=== PATIENT | male | born 1940 | race Caucasian/White ===

== ENCOUNTER 2020-09-01 08:08 | Outpatient (REF) | payer MEDICARE, SELFPAY ==
[2020-09-01 11:42] LABS: Hematocrit 48.9 % (42-52); Hemoglobin 15.4 g/dl (14.0-18.0); Mean Corpuscular HGB Conc 31.5 g/dl (31.0-36.0); Mean Corpuscular Hemoglobin 28.8 pg (27.0-33.0); Mean Corpuscular Volume 91.4 fL (80-98); Mean Platelet Volume 10.5 fL (9.4-12.4); Platelet Count 169 X10*3/uL (160-400); Red Blood Count 5.35 X10*6/uL (4.60-5.80); Red Cell Distribution Width 14.3 % (11.0-16.0); White Blood Count 9.3 X10*3/uL (4.8-10.8)
[2020-09-01 12:24] LABS: Alanine Aminotransferase 27 U/L (0-40); Albumin Level 4.5 g/dL (3.5-5.0); Alkaline Phosphatase 60 U/L (39-117); Anion Gap 12 (12-20); Aspartate Amino Transferase 19 U/L (5-37); Bilirubin Total 0.8 mg/dL (0.0-1.0); Blood Urea Nitrogen 16 mg/dL (9-16); Calcium 8.7 mg/dL (8.4-10.2); Carbon Dioxide 30 mmol/L (22-29); Chloride 102 mmol/L (96-108); Cholesterol 165 mg/dL; Estimated Glomerular Filt Rate > 60; Glucose Fasting 105 mg/dL (60-99); HDL Cholesterol 42 mg/dL; LDL Cholesterol Calculated 76 mg/dl; Potassium 4.1 mmol/l (3.3-5.1); Sodium 140 mmol/L (135-145); Total Protein 6.9 g/dL (6.5-8.0); Triglycerides 238 mg/dL
[2020-09-02 14:47] LABS: Mitochondrial Antibodies NEGATIVE (NEGATIVE)
[2020-09-06 12:17] LABS: Smooth Muscle Antibody <20 U (<20)
== END 2020-09-01 08:09 | disposition home or self-care (01) ==
LOC: HO.HMGCLDS 08:08
PROVIDERS: PCP Internal Medicine; Visit Provider Internal Medicine
DX: K76.0 Fatty (change of) liver, not elsewhere classified (principal); R78.2 Finding of cocaine in blood; I10 Essential (primary) hypertension; L29.9 Pruritus, unspecified; R55 Syncope and collapse
CPT/HCPCS: 36415; 80053; 80061; 85027; 86255; 86256

== ENCOUNTER 2020-09-19 13:33 | Outpatient (REF) | payer MEDICARE, SELFPAY ==
[2020-09-19 17:07] LABS: Alanine Aminotransferase 23 U/L (0-40); Albumin Level 4.7 g/dL (3.5-5.0); Alkaline Phosphatase 62 U/L (39-117); Anion Gap 14 (12-20); Aspartate Amino Transferase 20 U/L (5-37); Bilirubin Total 0.7 mg/dL (0.0-1.0); Blood Urea Nitrogen 20 mg/dL (9-16); Calcium 9.6 mg/dL (8.4-10.2); Carbon Dioxide 29 mmol/L (22-29); Chloride 99 mmol/L (96-108); Cholesterol 137 mg/dL; Estimated Glomerular Filt Rate > 60; Glucose Fasting 129 mg/dL (60-99); HDL Cholesterol 35 mg/dL; Sodium 138 mmol/L (135-145); Total Protein 7.2 g/dL (6.5-8.0); Triglycerides 452 mg/dL
[2020-09-19 17:29] LABS: Prostate Specific Antigen Scr 2.57 ng/mL (<0.05-4.0)
== END 2020-09-19 13:34 | disposition home or self-care (01) ==
LOC: HO.HMGCLDS 13:33
PROVIDERS: PCP Internal Medicine; Visit Provider Internal Medicine
DX: I48.91 Unspecified atrial fibrillation (principal); E78.5 Hyperlipidemia, unspecified; I10 Essential (primary) hypertension; I71.2 Thoracic aortic aneurysm, without rupture; N40.0 Benign prostatic hyperplasia without lower urinary tract symptoms
CPT/HCPCS: 80053; 80061; 84153

== ENCOUNTER 2020-10-14 10:41 | Outpatient (REF) | payer MEDICARE, SELFPAY ==
--- NOTE | 2020-10-14 10:51 | US_ITS ---
EXAMINATION: US VENOUS ULTRASOUND WITH DOPPLER LOWER EXTREMITY, LEFT CLINICAL INFORMATION: Localized edema. COMPARISON: None TECHNIQUE: Ultrasound of the deep veins is performed from the hip to the calf with compression sonography and color and pulse Doppler assessment. Spectral analysis with color-flow imaging is performed. FINDINGS: The common, proximal, mid and distal special femoral, profunda veins are widely patent. There is a chronic clot visualized within the popliteal vein. The calf veins including the peroneal and the posterior tibial veins are widely patent. No soft tissue edema seen. There is no Pineda's cyst. US/US venous duplex LE LT IMPRESSION: Chronic DVT popliteal vein. Rest of the left lower extremity veins are patent. The soft tissues are normal.
== END 2020-10-14 10:42 | disposition home or self-care (01) ==
LOC: HO.HMGCX 10:41
PROVIDERS: PCP Internal Medicine; Visit Provider Hospitalist
DX: R60.0 Localized edema (principal)
CPT/HCPCS: 93971

== ENCOUNTER 2020-12-28 13:53 | Outpatient (REF) | payer MEDICARE, SELFPAY ==
[2020-12-28 16:33] LABS: MANUAL DIFF FLAG NO
[2020-12-28 16:38] LABS: Basophils Absolute Auto 0.1 X10*3/uL (0.0-0.2); Basophils Percent Auto 0.6 % (0-2); Eosinophils Absolute Auto 0.2 X10*3/uL (0.0-0.4); Hematocrit 43.7 % (42-52); Hemoglobin 14.2 g/dl (14.0-18.0); Imm Gran Abs Auto 0.04 X10*3/uL (0.00-0.03); Imm Gran Pct Auto 0.5 % (0.0-0.4); Lymphocytes Absolute Auto 2.1 X10*3/uL (1.2-4.9); Lymphocytes Percent Auto 24.6 % (20-40); Mean Corpuscular HGB Conc 32.5 g/dl (31.0-36.0); Mean Corpuscular Hemoglobin 29.6 pg (27.0-33.0); Monocytes Absolute Auto 0.4 X10*3/uL (0.1-1.2); Monocytes Percent Auto 4.6 % (2-11); Neutrophils Absolute Auto 5.8 X10*3/uL (2.0-8.3); Neutrophils Percent Auto 67.7 % (45-73); Platelet Count 167 X10*3/uL (160-400); Red Cell Distribution Width 13.1 % (11.0-16.0); White Blood Count 8.5 X10*3/uL (4.8-10.8)
[2020-12-28 17:11] LABS: Alanine Aminotransferase 17 U/L (0-40); Albumin Level 4.4 g/dL (3.5-5.0); Alkaline Phosphatase 55 U/L (39-117); Anion Gap 13 (12-20); Aspartate Amino Transferase 17 U/L (5-37); Bilirubin Total 0.7 mg/dL (0.0-1.0); Blood Urea Nitrogen 19 mg/dL (9-16); Calcium 9.2 mg/dL (8.4-10.2); Carbon Dioxide 28 mmol/L (22-29); Chloride 102 mmol/L (96-108); Estimated Glomerular Filt Rate > 60; Glucose Random 106 mg/dL (60-115); Potassium 4.1 mmol/L (3.3-5.1); Sodium 139 mmol/L (135-145); Total Protein 6.6 g/dL (6.5-8.0)
[2020-12-28 17:19] LABS: B Type Natriuretic Peptide 25 pg/mL (<100)
== END 2020-12-28 13:54 | disposition home or self-care (01) ==
LOC: HO.HMGCLDS 13:53
PROVIDERS: PCP Internal Medicine; Visit Provider Nurse Practitioner Family
DX: R21 Rash and other nonspecific skin eruption (principal)
CPT/HCPCS: 36415; 80053; 83880; 85025

== ENCOUNTER → 2021-06-30 10:22 | Outpatient (BNVA) | payer MEDICARE, SELFPAY | PROVIDERS: PCP Nurse Practitioner Family; Visit Provider Internal Medicine Gastroenterology | DX: R11.15 Cyclical vomiting syndrome unrelated to migraine (principal) | CPT/HCPCS: 99202 ==

== ENCOUNTER 2021-07-10 10:25 | Outpatient (REF) | payer MEDICARE, SELFPAY ==
--- NOTE | ~2021-07-10 | FL_ITS ---
EXAMINATION: XR GI SERIES CLINICAL INFORMATION: Cyclical vomiting syndrome. COMPARISON: None TECHNIQUE: Upper GI was performed using thin and thick barium and effervescent granules. Exam is limited due to limited mobility. FINDINGS: There is slight mucosal irregularity at the esophagus suggestive of mild esophagitis. No esophageal hernia or reflux is seen. There may be mild increased fold thickening of the stomach. No mass, stricture or ulcer is seen. FLUOROSCOPY TIME: 2 minutes DOSE AREA PRODUCT: 25 Gycm2 32 saved fluoroscopic images. FL/FL upper GI series IMPRESSION: Limited exam due to limited patient mobility. Question mild esophagitis and gastritis.
== END 2021-07-10 10:26 | disposition home or self-care (01) ==
LOC: HO.XRAY 10:25
PROVIDERS: Visit Provider Internal Medicine Gastroenterology
DX: R11.15 Cyclical vomiting syndrome unrelated to migraine (principal)
CPT/HCPCS: 74240

== ENCOUNTER 2021-07-18 14:23 | Outpatient (REF) | payer MEDICARE, SELFPAY ==
--- NOTE | ~2021-07-18 | MR_ITS ---
EXAMINATION: MR BRAIN WITHOUT CONTRAST CLINICAL INFORMATION: Gait disorder. COMPARISON: None available. TECHNIQUE: Multiplanar, multisequence imaging of the brain was performed without intravenous contrast. FINDINGS: There is no acute infarction, hemorrhage, mass, or extra-axial fluid collection. There is a small focus of chronic lacunar infarction the right basal ganglia. Minimal nonspecific T2/FLAIR hyperintensity is seen in the cerebral white matter. The ventricles and sulci are commensurate with mild degree of diffuse brain parenchymal volume loss noted. There is no hydrocephalus. No brainstem, thalamic, or posterior fossa lesion is seen. The major arterial flow voids are preserved at the skull base. There are bilateral lens replacements. A subperiosteal lipoma is seen along the right frontal bone. There is a small mucosal retention cyst in left maxillary sinus and mild bilateral ethmoid mucosal thickening. MR/MR head/brain wo con IMPRESSION: No intracranial mass lesion, infarction, hemorrhage or evidence of hydrocephalus. Small chronic right basal ganglia lacunar infarct.
== END 2021-07-18 14:24 | disposition home or self-care (01) ==
LOC: HO.MRI 14:23
PROVIDERS: PCP Nurse Practitioner Family; Visit Provider Psychiatry & Neurology Neurology
DX: R26.9 Unspecified abnormalities of gait and mobility (principal)
CPT/HCPCS: 70551

== ENCOUNTER 2021-07-28 14:15 | Outpatient (REF) | payer MEDICARE, SELFPAY ==
--- NOTE | ~2021-07-28 | MR_ITS ---
MR CERVICAL SPINE WITHOUT CONTRAST CLINICAL INFORMATION: Gait and mobility abnormality. Rule out cord compression. COMPARISON: None available. TECHNIQUE: MRI of the cervical spine was obtained using routine sequences without contrast. FINDINGS: Cervical alignment is maintained. Vertebral body heights are preserved. Moderate to severe disc volume loss at C5-C6 and C6-C7. There is no bone marrow edema. There are no acute fractures. Craniocervical junction is unremarkable. Intracranially there is partially imaged global cerebral volume loss. Cervical arterial flow voids are maintained. There are no significant extraspinal soft tissue findings. C2-C3: Shallow central disc protrusion mildly indents the ventral thecal sac. Uncovertebral joint hypertrophy and hypertrophic facet arthropathy result in mild left-sided foraminal encroachment. C3-C4: Shallow central disc protrusion mildly narrows the central canal. Uncovertebral joint hypertrophy and hypertrophic facet arthropathy result in mild to moderate bilateral foraminal stenosis. C4-C5: Shallow central disc protrusion flattens the ventral cord, mildly narrowing the central canal. Advanced uncovertebral joint hypertrophy and hypertrophic facet arthropathy result in moderate to severe right-sided foraminal stenosis. C5-C6: Disc osteophyte flattens the ventral cord, resulting in mild central canal stenosis. Advanced uncovertebral joint hypertrophy and hypertrophic facet arthropathy result in severe bilateral foraminal stenosis. C6-C7: Disc osteophyte mildly narrows the central canal. Advanced uncovertebral joint hypertrophy and hypertrophic facet arthropathy result in severe left-sided foraminal stenosis. C7-T1: Posterior disc contour is normal. No central canal stenosis and no foraminal stenosis. MR/MR cervical spine wo con IMPRESSION: Multilevel cervical spondylosis with spondylitic changes resulting in mild to moderate bilateral C3-C4, moderate to severe right C4-C5, severe bilateral C5-C6, and severe left C6-C7 foraminal stenosis. Mild central canal stenosis at multiple cervical levels as discussed above. No severe central canal stenosis.
== END 2021-07-28 14:16 | disposition home or self-care (01) ==
LOC: HO.MRI 14:15
PROVIDERS: PCP Nurse Practitioner Family; Visit Provider Psychiatry & Neurology Neurology
DX: R26.9 Unspecified abnormalities of gait and mobility (principal)
CPT/HCPCS: 72141

== ENCOUNTER 2023-07-22 13:03 | Outpatient (AMB) | payer MEDICARE, SELFPAY ==
--- NOTE | 2023-07-22 13:13 | MHC.OFFVIS ---
Intake Vital Signs 07/22/23 13:24 Height 5 ft 6 in Weight 170 lb BMI 27.4 BP 130/70 Blood Pressure Location Rt brachial Position Sitting Respiration 16 Pulse 73 Pulse Source Pulse Oximeter Pulse Oximetry (%) 98 Oxygen Delivery Method Room Air Intake Visit Reasons: spinal stenosis Intake Note: patient comes in for initial visit was referred by pcp. Allergies No Known Allergies Allergy (Verified 07/22/23 13:19) HPI HPI Comments History of Present Illness Details Daniel is very pleasant 83 years old gentleman who presents in my office with complains on pain in the axial lumbar spine. He reported that this pain started in March on 2022. He was diagnosed with spondylolisthesis. He was under care of [facility] pain management where he was offered sacroiliac joint injections as well as bilateral facet joint vertebras medial branch block injection. He was found that at the [facility] does not accept his insurance so he brings his needs for care here in [facility]. He reports his pain is 5/10. He reports that he can sleep normally because of his pain but he cannot do activities of daily living he can take care of himself and he can not function normally. He needs walker for ambulation. Heat applications weather changes in movements aggravate his pain. He tried application of the cold and that alleviate his pain. He reports his pain in terms of tissue damage is dull, sore, hurting, aching, and heavy sensation. He also reports numbness sensation in the lumbar spine. He tried physical therapy for his pain with no results he was receiving massage therapy but also denied any results. He received MRI of the lumbar spine degrees out of which dictated below. The patient received that MRI 2 years ago in 2020. It was discovered with significant grade II spondylolisthesis and some spinal stenosis however without nerve root compressions. However since then he reported that he started to experience incontinence with urine. It is possible that his spondylolisthesis progressed and now causing neurogenic bladder. [facility] Medical History (Updated 07/22/23 @ 17:03 by Favio Morejon MD) BPH (benign prostatic hyperplasia) Fatty liver Osteoarthritis Disc herniation Chronic pruritus Ascending aortic aneurysm Atrial fibrillation Hyperlipidemia HTN (hypertension) Surgical History (Updated 06/30/21 @ 10:40 by JOEL Dumont) Hx of colonoscopy H/O hernia repair History of right shoulder replacement Social History Alcohol intake: never Review of Systems Const Denies chills and Denies fever(s) ENT Reports Normal hearing present Card Denies chest pain, Denies chest pain at rest, Denies chest pain with activity, Denies dyspnea and Denies dyspnea on exertion Resp Denies cough, Denies dyspnea and Denies dyspnea on exertion GI Reports no additional complaints Reports as per HPI and Reports urinary incontinence Musc Reports back pain, Reports arthralgias, Reports joint swelling, Reports limited range of motion and Reports numbness Neuro Reports Normal hearing present, Denies Abnormal speech present, Denies confusion, Reports numbness and Denies Sensory deficit (Neuro) Psych Reports no additional complaints and Denies confusion Physical Exam Vital Signs: Last Vital Signs Pulse 73 07/22/23 13:24 Resp 16 07/22/23 13:24 BP 130/70 07/22/23 13:24 Pulse Ox 98 07/22/23 13:24 Oxygen Delivery Method Room Air 07/22/23 13:24 BMI result Body Mass Index 27.4 Const General: no acute distress; No confusion Orientation/consciousness: patient oriented x3 and No confusion Eyes General: appearance normal, both eyes and all related structures Pupils: Equal, round and reactive pupils present EOM: EOMs intact bilaterally Neck Neck: Yes full ROM Chest Chest palpation & inspection: normal inspection of the chest Resp Effort & Inspection: normal respiratory effort, able to speak in complete sentences, normal respiratory pattern, no audible wheezes and no cough Cardio Jugular venous distension: no JVD GI Inspection: Yes normal to inspection Back/Spine/Pelvis Other: Minimal mobility of the lumbar spine. Flexing forward and flexing backwards do aggravates patient's pain. He reports that he uses walker for ambulation and it is easier for him to walk with the help of a walker. SLR is positive bilaterally. Bilateral Stinchfield test Gaenslen test Ken test and 14 finger test but not the pelvis destruction test are positive for the patient. Valsalva maneuver aggravates the patient's pain. Neuro General: patient oriented x3, gait normal and No confusion Cranial nerves: Yes CN's II-XII intact bilaterally, Yes Equal, round and reactive pupils present, Yes Normal hearing present and Yes Ability to bilaterally elevate shoulders present Speech: No Abnormal speech present Gait exam (Neuro): Normal gait present Motor exam (neuro): 5/5 motor strength present throughout Sensory Exam: No Sensory deficit (Neuro) Extrem General: No pedal edema Psych Speech and movement: Normal speech and movement present Affect: normal affect Attitude: cooperative Thought process: Normal thought process present Thought content: Normal thought content present Insight: Good insight present (Psych) Judgement: Good judgement present (Psych) Results Reviewed Results Reviewed: MRI lumbar spine 04/21/2021. Findings: Vertebral bodies are normal in height. There is grade 2 anterolisthesis of L5 on S1 with chronic appearing L5 pars interarticularis defect noted. Sagittal alignment is otherwise maintained. Multilevel degenerative endplate marrow signal changes and endplate osteophytes. There is diffuse disc desiccation and moderate to marked loss of intervertebral disc height along the several small Schmorl's nodes. The visualized distal spinal cord and conus medullaris are normal. The conus medullaris terminates at T12. The paraspinal and vertebral soft tissues are unremarkable. At T12-L1 there is a mild facet arthropathy but there is no spinal canal or neural foraminal stenosis. L1-L2 concentric disc osteophyte complex with small superimposed left paracentral disc protrusion component as well as ligamentum flavum thickening and facet arthropathy. There is mild narrowing the spinal canal and left subarticular recess although there is no impingement on the traversing left L2 nerve roots. There is moderate to severe left and mild right neural foraminal narrowing. Left neural foraminal narrowing mostly due to foraminal disc protrusion combine and. L2-L3: Diffuse disc bulge eccentric to were the left with ligamentum flavum thickening and facet arthropathy causing mild narrowing of the spinal canal. Moderate bilateral neural foraminal narrowing. L3-L4 diffuse disc bulge with ligamentum flavum thickening and facet arthropathy causing mild narrowing of the spinal canal. There is moderate bilateral neural foraminal narrowing. L4-5 there is concentric disc osteophyte complex and facet arthropathy. There is no significant narrowing of the spinal canal. There is moderate to severe right and [id number] left neural foraminal narrowing. L5-S1 there is anterolisthesis with uncovering of the intervertebral disc and there is a facet arthropathy. There is no significant narrowing of the spinal canal. There is severe bilateral neural foraminal narrowing with apparent compression of bilateral exiting L5 nerve roots. Extensive colonic diverticulosis is noted partially imaged. Assessment & Plan Assessment & Plan (1) Spondylolisthesis at L5-S1 level: Code(s): M43.17 - Spondylolisthesis, lumbosacral region (2) Disc degeneration, lumbar: Code(s): M51.36 - Other intervertebral disc degeneration, lumbar region (3) Sacroiliitis: Code(s): M46.1 - Sacroiliitis, not elsewhere classified (4) Sacroiliac joint dysfunction of both sides: Code(s): M53.3 - Sacrococcygeal disorders, not elsewhere classified (5) Facet arthropathy, lumbar: Code(s): M47.816 - Spondylosis without myelopathy or radiculopathy, lumbar region (6) Spondylosis, lumbar, with myelopathy: Code(s): M47.16 - Other spondylosis with myelopathy, lumbar region (7) Radiculopathy, lumbar region: Code(s): M54.16 - Radiculopathy, lumbar region (8) Chronic pain syndrome: Code(s): G89.4 - Chronic pain syndrome Plan Back in 2020 he was diagnosed with advanced grade 2 spondylolisthesis L5 on S1. Due to spondylolisthesis there are severe compression of the L5 nerve roots exiting at this level as well as mild central canal stenosis. Since then he reported his condition turned to worse and he developed urinary incontinence on top of the severe pain he reports in the axial lumbar spine. On physical examination he exhibits the signs of bilateral sacroiliitis as well as possible significant lumbar arthritis. He also exhibits signs of radiculopathy lumbar. He went for the consult with Dr. Griffin a neurosurgeon who denied him a surgery because of the older age but recommended watchful waiting because of the progression of the spondylolisthesis. Since then it was 2 years and it is possible that his spondylolisthesis progressed. I will schedule him for the MRI of the lumbar spine to evaluate possible progression of the spondylolisthesis. Because it looks that the patient is developing pelvic organ dysfunction I would like to expedite the MRI in schedule it as the urgent procedure. I will try to perform bilateral sacroiliac joint injections on this patient and see if this will alleviate his pain and to what extent. If sacroiliac joint injections will not be working for this patient I will schedule him for medial branch block injection L3-L4 does ramus L5 to isolate the area of the fractured pars defect and spondylolisthesis. If on the MRI severe spondylolisthesis and cauda equina compression will be noted hip probably have to pay a visit to a neurosurgeon again. Orders: Orders MR lumbar spine wo con Today G89.4 - Chronic pain syndrome, M43.17 - Spondylolisthesis, lumbosacral region, M46.1 - Sacroiliitis, not elsewhere classified, M47.16 - Other spondylosis with myelopathy, lumbar region, M47.816 - Spondylosis without myelopathy or radiculopathy, lumbar region, M51.36 - Other intervertebral disc degeneration, lumbar region, M53.3 - Sacrococcygeal disorders, not elsewhere classified, M54.16 - Radiculopathy, lumbar region Coding Level of Care Code New Pt Level 4 (42875) Diagnoses Spondylolisthesis at L5-S1 level M43.17 Disc degeneration, lumbar M51.36 Sacroiliitis M46.1 Sacroiliac joint dysfunction of both sides M53.3 Facet arthropathy, lumbar M47.816 Spondylosis, lumbar, with myelopathy M47.16 Radiculopathy, lumbar region M54.16 Chronic pain syndrome G89.4
[2023-07-22 13:24] VITALS: BP 130/70; PULSE 73; RESP 16; O2SAT 98; BMI 27.4
== END 2023-07-22 14:12 | disposition home or self-care (01) ==
PROVIDERS: PCP Nurse Practitioner Family; Visit Provider Anesthesiology
DX: G89.4 Chronic pain syndrome (principal); M46.1 Sacroiliitis, not elsewhere classified; M47.16 Other spondylosis with myelopathy, lumbar region; M47.26 Other spondylosis with radiculopathy, lumbar region; M51.36 Other intervertebral disc degeneration, lumbar region; M53.3 Sacrococcygeal disorders, not elsewhere classified; M43.17 Spondylolisthesis, lumbosacral region
CPT/HCPCS: 99204

== ENCOUNTER → 2023-07-22 13:03 | Outpatient (BNVA) | payer MEDICARE, SELFPAY | PROVIDERS: PCP Nurse Practitioner Family; Visit Provider Anesthesiology ==

== ENCOUNTER 2023-08-01 16:55 | Outpatient (REF) | payer MEDICARE, SELFPAY | END 2023-08-01 16:56 | disposition home or self-care (01) | LOC: HO.MRI 16:55 | PROVIDERS: PCP Internal Medicine; Visit Provider Anesthesiology | DX: M54.16 Radiculopathy, lumbar region (principal); M47.16 Other spondylosis with myelopathy, lumbar region; M47.816 Spondylosis without myelopathy or radiculopathy, lumbar region; M53.3 Sacrococcygeal disorders, not elsewhere classified; M46.1 Sacroiliitis, not elsewhere classified; M43.17 Spondylolisthesis, lumbosacral region; M51.36 Other intervertebral disc degeneration, lumbar region; G89.4 Chronic pain syndrome | CPT/HCPCS: 72148 ==

== ENCOUNTER 2023-08-13 07:25 | Outpatient (REF) | payer MEDICARE, SELFPAY ==
--- NOTE | ~2023-08-13 | FL_ITS ---
EXAMINATION: XR FLUOROSCOPY WITH IMAGES CLINICAL INFORMATION: Sacrococcygeal disorders, not elsewhere classified. COMPARISON: None available. TECHNIQUE: Fluoroscopy Supervised By: Dr. Favio Morejon. Fluoroscopy Time: 0.2 minutes. Cumulative Dose: 3.16 mGy. DAP: 0.0550 Gycm2. Images: 2. FINDINGS: Images demonstrate needle placement and contrast injection of the bilateral sacroiliac joints FL/FL guidance in treatment room IMPRESSION: Fluoroscopy guidance for pain management procedure
== END 2023-08-13 07:26 | disposition home or self-care (01) ==
LOC: CF 07:25
PROVIDERS: Visit Provider Anesthesiology
DX: M53.3 Sacrococcygeal disorders, not elsewhere classified (principal); M43.17 Spondylolisthesis, lumbosacral region; M51.36 Other intervertebral disc degeneration, lumbar region; M46.1 Sacroiliitis, not elsewhere classified; M47.16 Other spondylosis with myelopathy, lumbar region; G89.4 Chronic pain syndrome
CPT/HCPCS: 27096

== ENCOUNTER 2023-08-13 11:32 | Outpatient (AMB) | payer MEDICARE, SELFPAY ==
--- OUTSIDE RECORDS SUMMARY | 2023-08-13 11:34 | XMS_ITS | Continuity of Care Document ---
Author Name Unknown Organization [facility] Address [address] [place] [address] [address], [address] [place] [address]- Care Team Providers Care Manufacturing Operations Manager Name Role Phone Ino Hurtado DO Primary Care Physician Encounter [facility] Date(s): 05/26/21 - 06/25/21 [facility] [address] [place] [address] Drive, [address] [place], [place] [address] Allergies, Adverse Reactions, Alerts Substance Reaction Severity Status NKA Active Immunizations Given and Recorded Vaccine Date Status Refusal Reason influenza virus vaccine, inactivated 1 07/07/15 Re corded influenza virus vaccine, inactivated 2 09/25/13 Gi juancho influenza virus vaccine, inactivated 3 07/28/12 Gi juancho influenza virus vaccine, inactivated 4 09/02/11 Gi juancho Zostavax (oldterm) 03/14/11 Given FluLaval (oldterm) 08/02/10 Given FluLaval (oldterm) 5 07/07/09 Given tetanus-diphtheria toxoids (Td) 02/25/05 Given Pneumococcal Vaccine (oldterm) 11/28/03 Given 1Result Comment: [07/12/2015] GIVEN AT [facility] 2Admin Note: one month ago at [facility] in [place] 3Admin Note: [facility] 4Admin Note: [facility] 5Admin Note: [facility] [place] Medications Accu-Chek Dejah Plus Test Strips See Instructions, # 1 box, Refills 11, Tot. Refills 11, Maintenance, Please use as directed to testBS's BID for DM2 250.00, 06/08/15 14:26:00, Compound Start Date: 06/08/15 Status: Ordered Accu-Chek Dejah Plus Test Strips See Instructions, # 1 box, Refills 3, Tot. Refills 3, Maintenance, Please use as directed to test BS's TID for DM2 250.00, 07/05/15 22:06:17, 90 day supply please, Compound Start Date: 07/05/15 Status: Ordered lisinopril 10 mg oral tablet 1 tablet = 10 mg, By Mouth, Daily, # 90 tablet, 3 Refills, Maintenance, Tablet Start Date: 09/15/12 Stop Date: 09/10/13 Status: Ordered omega-3 polyunsaturated fatty acids 1000 mg oral capsule 2 capsule = 2,000 mg, By Mouth, 2 times a day, 0 Refills, Maintenance, 03/09/14 14:17:50 Start Date: 03/09/14 Status: Ordered Protonix 40 mg oral delayed release tablet 1 tablet = 40 mg, By Mouth, Daily, # 30 tablet, 0 Refills, Maintenance, 04/02/14 9:40:01, EC Tablet, 1 tablet By Mouth Daily Start Date: 04/02/14 Status: Ordered Soft Click Lancets See Instructions, # 1 box, Refills 11, Tot. Refills 11, Maintenance, Please use as directed to check BS BID for DM2 250.00, 06/08/15 14:25:57, soft click for Dejah plus accu check, Compound Start Date: 06/08/15 Status: Ordered Soft Click Lancets See Instructions, # 1 box, Refills 3, Tot. Refills 3, Maintenance, Please use as directed to test BS TID for DM2 250.00, 07/05/15 22:06:14, 90 day supply please, Compound Start Date: 07/05/15 Status: Ordered Problem List Condition Effective Dates Status Health Status Inform ant Adult BMI 30.0-30.9 kg/sq m(Confirmed) Active Adult BMI 30.0-30.9 kg/sq m(Confirmed) Active Aortic Aneurysm of Unspecifi ed Site without Mention of Rupture(Confirmed) 1, 2, 3 Active Arthritis of shoulder region , left, degenerative(Confirmed) 4 Active Benign hypertension(Confirmed) Active Chronic allergic rhinitis(Confirmed) Active Esophageal reflux (GERD)(Confirmed) 5 10/19/11 Active Gallstones(Confirmed) Active History of DVT (deep vein thrombosis)(Confirmed) Active Impaired Fasting Glucose(Con firmed) 6, 7 Active Low HDL (under 40)(Confirmed) Active Nephrolithiasis(Confirmed) Active Phlebitis, superficial(Confirmed) Active 1Stable 2minimal progression;monitoring CT 3mild see report ascending,arch,prox distal 4rt shoulder 5handout 6diabetic education done 7advised pre diabetic;increased risk diabetes Social History Social History Type Response Smoking Status Never smoker entered on: 09/25/13 Sex
--- OUTSIDE RECORDS SUMMARY | 2023-08-13 11:34 | XMS_ITS | Continuity of Care Document ---
Author Name Unknown Organization [facility] Address [address] [place] [address], [address] [place] [address]- Care Team Providers Care Documentum Consultant Name Role Phone Ino Hurtado DO Primary Care Physician Encounter [facility] Date(s): 07/11/21 - 08/10/21 [facility] [address] [place] [address], [address] [place], [place] [address] Attending Physician: Harman Frank Admitting Physician: AdmHarman martinez Referring Physician: AdmtrHarman Allergies, Adverse Reactions, Alerts Substance Reaction Severity [...] 11/28/03 Given 1Result Comment: [07/12/2015] GIVEN AT [facility] 2Admin Note: one month ago at [facility] in [place] 3Admin Note: [facility] 4Admin Note: [facility] 5Admin Note: [facility] [place] Medications Accu-Chek Dejah Plus Test Strips See [...] please, Compound Start Date: 07/05/15 Status: Ordered Eliquis 5 mg oral tablet 1 tablet = 5 mg, By Mouth, 2 times a day, 0 Refills, Maintenance, 07/11/21 10:33:00 EDT, Partial fill upon patient request if the prescription is for a schedule II opioid drug. Start Date: 07/11/21 Status: Ordered lisinopril 10 mg oral tablet 1 tablet = 10 mg, By Mouth, Daily, # 90 tablet, 3 Refills, Maintenance, Tablet Start Date: 09/15/12 Stop Date: 09/10/13 Status: Ordered Protonix 40 mg oral delayed [...] allergic rhinitis(Confirmed) Active Esophageal reflux (GERD)(Confirmed) 5 12/23/11 Active Gallstones(Confirmed) Active History of DVT (deep [...]
--- OUTSIDE RECORDS SUMMARY | 2023-08-13 11:34 | XMS_ITS | Continuity of Care Document ---
Author Name Unknown Organization [facility] Address [address] [place] [id number]- Care Team Providers Care Computational Linguist Name Role Phone Gilmer SANTOS MD, Miller Schneider Primary Care Physician [phone] [place] [facility] [place] 04/09/22 - 05/09/22 [facility] [address] [place] [id number]- Allergies, Adverse Reactions, Alerts No Known Allergies Immunizations Given and Recorded Vaccine Date Status [...] 11/28/03 Given 1Result Comment: [07/12/2015] GIVEN AT [facility] 2Admin Note: one month ago at [facility] [place] [facility] 4Admin Note: [facility] 5Admin Note: [facility] Medications Accu-Chek Dejah Plus Test Strips See [...] please, Compound Start Date: 07/05/15 Status: Ordered Atenolol By Mouth, Daily, 0 Refills, Maintenance, 01/16/22 13:42:00 EDT, Partial fill upon patient request if the prescription is for a schedule II opioid drug. Start Date: 01/16/22 Status: Ordered atorvastatin 10 mg oral tablet 1 tablet = 10 mg, By Mouth, Daily, # 30 tablet, 0 Refills, Maintenance, 11/08/21 12:53:00 EST, Partial fill upon patient request if the prescription is for a schedule II opioid drug. Start Date: 11/08/21 Status: Ordered Eliquis 5 mg oral tablet [...]
--- OUTSIDE RECORDS SUMMARY | 2023-08-13 11:34 | XMS_ITS | Continuity of Care Document ---
Author Name Unknown Organization [facility] Address [address], [address] Floor, [address] [place] [address]- Care Team Providers Care Light Rail Signal Technician Name Role Phone Gilmer SANTOS MD, Miller Schneider Primary Care Physician [place] [facility] [place]23 [place] 05/10/23 [facility] [address], 3rd Floor, [address] [place] [address] Allergies, Adverse Reactions, Alerts No Known Allergies [...] 11/28/03 Given 1Result Comment: [07/12/2015] GIVEN AT [facility] 2Admin Note: one month ago at [facility] in [place] 3Admin Note: [facility] 4Admin Note: [facility] 5Admin Note: [employer] [facility] [place] [...] Date: 07/05/15 Status: Ordered Problem List Condition Confirmation Course Effective Dates Status H ealth Status Informant Adult BMI 30.0-30.9 kg/sq m Confirmed Active Adult BMI 30.0-30.9 kg/sq m Confirmed Active Aortic Aneurysm of Unspecified Site without Mention of Rupture 1, 2, 3 Confirmed Active Arthritis of shoulder region, left, degenerative 4 Confirmed Active Benign hypertension Confirmed Active Sacroiliac joint dysfunction of both sides Confirmed Active Chronic allergic rhinitis Confirmed Active Esophageal reflux (GERD) 5 Confirmed 10/19/11 Active Gallstones Confirmed Active History of DVT (deep vein thrombosis) Confirmed Active Impaired Fasting Glucose 6, 7 Confirmed Active Low HDL (under 40) Confirmed Active Lumbar facet joint pain Confirmed Active Nephrolithiasis Confirmed Active Phlebitis, superficial Confirmed Active 1Stable 2minimal progression;monitoring CT 3mild see report ascending,arch,prox distal 4rt shoulder 5handout 6diabetic education done 7advised pre diabetic;increased risk diabetes Social History Social History Type Response Smoking Status Never smoker entered on: 09/25/13 Sex Patient Care team information Care Team Personnel Name: Gilmer SANTOS MD, Miller Schneider Position: Reference Physician Member Role: PCP Address: Address: [address] [place] [address]- Care Team Related Persons Name: MOIZ CHACKO Name: DOMO ISAACS Address: home [address] [place] [address]
--- OUTSIDE RECORDS SUMMARY | 2023-08-13 11:34 | XMS_ITS | Continuity of Care Document ---
Author Name Unknown Organization [facility] Address [address] [place] [address]- Care Team Providers Care Coding File Clerk Name Role Phone Gilmer SANTOS MD, Miller Schneider Primary Care Physician Encounter [id number] Date(s): 02/14/23 - 03/16/[address] [address] Attending Physician: Harman Frank Admitting Physician: AdmtrHarman Referring Physician: Admtr, Ar8 Allergies, Adverse Reactions, Alerts No Known Allergies [...] 11/28/03 Given 1Result Comment: [07/12/2015] GIVEN AT [facility] 2Admin Note: one month ago at [facility] in [place] 3Admin Note: [facility] 4Admin Note: [facility] 5Admin Note: [facility] [place] Medications Accu-Chek Dejah Plus Test Strips See [...] 4 Confirmed Active Benign hypertension Confirmed Active Chronic allergic rhinitis Confirmed Active Esophageal reflux (GERD) 5 Confirmed 10/19/11 Active Gallstones Confirmed Active History of DVT (deep vein thrombosis) Confirmed Active Impaired Fasting Glucose 6, 7 Confirmed Active 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
--- OUTSIDE RECORDS SUMMARY | 2023-08-13 11:34 | XMS_ITS | Continuity of Care Document ---
Author Name Unknown Organization [facility] Address [address] [place] [address]- Care Team Providers Care Personnel Monitor Name Role Phone Daniel Hurtado DO Primary Care Physician En[facility] Date(s): 01/19/22 - 02/18/22 [facility] [address] [place] [address] Allergies, Adverse Reactions, Alerts No Known Allergies [...] 11/28/03 Given 1Result Comment: [07/12/2015] GIVEN AT [facility] 2Admin Note: one month ago at [facility] in [place] 3Admin Note: [facility] 4Admin Note: [facility] 5Admin Note: [facility] [place] [...]
--- OUTSIDE RECORDS SUMMARY | 2023-08-13 11:34 | XMS_ITS | Continuity of Care Document ---
Author Name Unknown Organization [facility] Address [address] [place] [address]- Care Team Providers Care Water Mangle Tender Name Role Phone Gilmer SANTOS MD, Miller Schneider Primary Care Physician [phone] Encounter [facility] Date(s): 09/27/22 - 11/01/22 [facility] [address] [place] [address]- Attending Physician: Joanne Hannah MD Admitting Physician: Joanne Hannah MD Allergies, Adverse Reactions, Alerts No Known Allergies [...] Given 1Result Comment: [07/12/2015] GIVEN AT [facility] 2Admin Note: one month ago at [facility] in [place] 3Admin Note: [facility] 4Admin Note: [facility] 5Admin Note: [employer] [facility] [place] Medications Accu-Chek Dejah Plus Test Strips See [...] Name: Gilmer SANTOS MD, Miller Schneider Position: [facility] Ambulatory (view) Member Role: PCP Address: Address: [address] [place] [address]- Care Team Related Persons Name: MOIZ CHACKO Name: DOMO ISAACS Address: home [address] [place] [address]
--- OUTSIDE RECORDS SUMMARY | 2023-08-13 11:34 | XMS_ITS | Continuity of Care Document ---
Author Name Unknown Organization [facility] Address [address] [place] [address]- Care Team Providers Care Trim Setter Name Role Phone Miller Scherer III, MD Primary Care Physician [phone] [facility] Date(s): 05/30/22 - 06/29/22 [facility] [address] [place] [address]- Attending Physician: Harman Frank Admitting Physician: Harman Frank Referring Physician: AdmtrHarman Allergies, Adverse Reactions, Alerts No Known Allergies [...] 11/28/03 Given 1Result Comment: [07/12/2015] GIVEN AT [facility] 2Admin Note: one month ago at [facility] in [place] 3Admin Note: [facility] 4Admin Note: [facility] 5Admin Note: [facility] [place] Medications Accu-Chek Dejah Plus Test Strips See [...] Status Never smoker entered on: 09/25/13 Sex Care Team Personnel Name: Gilmer SANTOS MD, Miller Schneider Address: [address] [place] [id number]
--- OUTSIDE RECORDS SUMMARY | 2023-08-13 11:34 | XMS_ITS | Continuity of Care Document ---
Author Name Unknown Organization [facility] Address [address] [place] [address]- Care Team Providers Care Director Auto Name Role Phone Gilmer SANTOS MD, Miller Schneider Primary Care Physician [phone] Encounter [facility] Date(s): 04/05/22 - 05/05/22 [facility] [address] [place] [address]- Allergies, Adverse Reactions, Alerts No Known Allergies [...] 11/28/03 Given 1Result Comment: [07/12/2015] GIVEN AT [facility] 2Admin Note: one month ago at [facility] in [place] 3Admin Note: [facility] 4Admin Note: [facility] 5Admin Note: [facility] [place] Medications Accu-Chek Dejah Plus Test Strips See [...]
--- OUTSIDE RECORDS SUMMARY | 2023-08-13 11:34 | XMS_ITS | Continuity of Care Document ---
Author Name Unknown Organization [facility] Address [address] [place] [address] [address], [address] [place] [address]- Care Team Providers Care Speedboat Operator Name Role Phone Ino Hurtado DO Primary Care Physician [facility]counter [facility] Date(s): 07/11/21 - 08/10/21 [facility] [address] [place] [address] Drive, [address] [place], [place] [address] Allergies, Adverse Reactions, Alerts Substance [...] 11/28/03 Given 1Result Comment: [07/12/2015] GIVEN AT [facility] 2Admin Note: one month ago at [facility] in [place] 3Admin Note: [facility] 4Admin Note: [facility] 5Admin Note: [facility] [place] Medications Accu-Chek Dejah Plus Test Strips See [...]
--- OUTSIDE RECORDS SUMMARY | 2023-08-13 11:34 | XMS_ITS | Continuity of Care Document ---
Author Name Unknown Organization [facility] Address [address] [place] [address]- Care Team Providers Care Meter Mechanic Name Role Phone Gilmer SANTOS MD, Miller Schneider Primary Care Physician Encounter [facility] Date(s): 05/20/23 - 06/19/23 [facility] [address] [place] [address]- Attending Physician: Harman Frank Admitting Physician: AdmHarman martinez Referring Physician: Admtr, Kristian8 Allergies, Adverse Reactions, Alerts No Known Allergies [...] 11/28/03 Given 1Result Comment: [07/12/2015] GIVEN AT [facility] 2Admin Note: one month ago at [facility] in [place] 3Admin Note: [facility] 4Admin Note: [facility] 5Admin Note: [facility] [place] Medications Accu-Chek Dejah Plus Test Strips See [...] Status Never smoker entered on: 09/25/13 Sex Radiology * Event Display: MRI Spine, Non- BH Authored Date: Patient Care team information Care Team Personnel Name: Gilmer SANTOS MD, Miller Schneider Position: Reference Physician Member Role: PCP Address: Address: [address] [place] [address]- Care Team Related Persons Name: MOIZ CHACKO Name: DOMO ISAACS Address: home [address] [place] [address]
--- OUTSIDE RECORDS SUMMARY | 2023-08-13 11:35 | XMS_ITS | Continuity of Care Document ---
Author Name Unknown Organization [facility] Address [address] [place] [address]- Care Team Providers Care Examining Officer Name Role Phone Daniel Hurtado DO Primary Care Physician [place] [facility]/21 - 12/07/[address] [address] Attending Physician: Daniel Hurtado DO Admitting Physician: Daniel Hurtado DO Allergies, Adverse Reactions, Alerts No Known Allergies [...] 11/28/03 Given 1Result Comment: [07/12/2015] GIVEN AT [facility] 2Admin Note: one month ago at [facility] in [place] 3Admin Note: [facility] 4Admin Note: [facility] 5Admin Note: [facility] [place] Medications Accu-Chek Dejah Plus Test Strips See [...] please, Compound Start Date: 07/05/15 Status: Ordered atorvastatin 10 mg oral tablet [...]
--- OUTSIDE RECORDS SUMMARY | 2023-08-13 11:35 | XMS_ITS | Continuity of Care Document ---
Author Name Unknown Organization [facility] Address [address] [place] [address]- Care Team Providers Care Global Marketing Coordinator Name Role Phone Gilmer SANTOS MD, Miller Schneider Primary Care Physician Encounter [facility] Date(s): 09/27/22 - 10/27/22 [facility] [address] [place] [address]- Allergies, Adverse Reactions, Alerts No Known Allergies [...] [place] 2Admin Note: one month ago at [facility] in [place] 3Admin Note: [facility] 4Admin Note: [facility] 5Admin Note: [facility] [place] Medications Accu-Chek Dejah Plus Test Strips See [...] Name: Gilmer SANTOS MD, Miller Schneider Position: [facility] Ambulatory (view) Member Role: PCP Address: Address: [address] [place] [address]- Care Team Related Persons Name: MOIZ CHACKO Name: DOMO ISAACS Address: home [address] [place] [address]
--- OUTSIDE RECORDS SUMMARY | 2023-08-13 11:35 | XMS_ITS | Continuity of Care Document ---
Author Name Unknown Organization [facility] Address [address] [place] [address]- Care Team Providers Care Home Health Care Respiratory Therapist Name Role Phone Ino Hurtado DO Primary Care Physician [place] [facility] [place](s[place] 01/18/22 - 02/17/[address] [address] Attending Physician: Harman Frank Admitting Physician: AdmHarman [...] Given 1Result Comment: [07/12/2015] GIVEN AT [facility] 2Admin Note: one month ago at [facility] in [place] 3Admin Note: [facility] 4Admin Note: [facility] 5Admin Note: [facility] [place] Medications [...]
--- OUTSIDE RECORDS SUMMARY | 2023-08-13 11:35 | XMS_ITS | Continuity of Care Document ---
Author Name Unknown Organization [facility] Address [address] [place] [address]- Care Team Providers Care Head Tennis Coach Name Role Phone Gilmer SANTOS MD, Miller Schneider Primary Care Physician [place] [facility] [place] 04/18/23 - 05/18/23 [facility] [address] [place] [address]- Allergies, Adverse Reactions, Alerts No Known Allergies [...] HOSPITAL 2Admin Note: one month ago at [facility] in [place] 3Admin Note: [facility] 4Admin Note: [facility] 5Admin Note: [facility] Medications Accu-Chek Dejah Plus Test Strips See [...] Physician Member Role: PCP Address: Address: [address] [place] [address]- Care Team Related Persons Name: MOIZ CHACKO Name: DOMO ISAACS Address: home [address] [place] [address]
--- OUTSIDE RECORDS SUMMARY | 2023-08-13 11:35 | XMS_ITS | Continuity of Care Document ---
Author Name Unknown Organization [facility] Address [address] [place] [address] [address], [address] [place] [address]- Care Team Providers Care Environmental Science Professor Name Role Phone Ino Hurtado DO Primary Care Physician [facility] Date(s): 09/18/21 - 10/18/21 [facility] [address] [place] [address] Drive, [address] [place], [place] [address] Allergies, Adverse Reactions, Alerts Substance Reaction Severity [...] 11/28/03 Given 1Result Comment: [07/12/2015] GIVEN AT [facility] 2Admin Note: one month ago at [facility] in [place] 3Admin Note: [facility] 4Admin Note: [facility] 5Admin Note: [facility] [place] Medications [...]
--- OUTSIDE RECORDS SUMMARY | 2023-08-13 11:35 | XMS_ITS | Continuity of Care Document ---
Author Name Unknown Organization [facility] Address [address] [place] [address]- Care Team Providers Care Forepart Laster Name Role Phone Ino Hurtado DO Primary Care Physician En[facility] Date(s): 10/10/21 - 12/02/21 [facility] [address] [place] [address] Attending Physician: Joanne Hannah MD Admitting Physician: Joanne Hannah MD Referring Physician: Ino Hurtado DO Allergies, Adverse Reactions, Alerts No [...] 11/28/03 Given 1Result Comment: [07/12/2015] GIVEN AT [facility] 2Admin Note: one month ago at [facility] [place] 3Admin Note: [facility] 4Admin Note: [facility] 5Admin Note: [employer] [facility] [place] [...]
--- OUTSIDE RECORDS SUMMARY | 2023-08-13 11:35 | XMS_ITS | Continuity of Care Document ---
Author Name Unknown Organization [facility] Address [address] [place] [address]- Care Team Providers Care Cap And Hat Production Supervisor Name Role Phone Gilmer SANTOS MD, Miller Schneider Primary Care Physician Encounter [facility] Date(s): 04/26/23 - 06/19/23 [facility] [address] [place] [address]- Attending Physician: Tee Flores MD Admitting Physician: Tee Flores MD Allergies, Adverse Reactions, Alerts No Known [...] 11/28/03 Given 1Result Comment: [07/12/2015] GIVEN AT [facility] 2Admin Note: one month ago at [facility] in [place] 3Admin Note: [facility] 4Admin Note: [facility] 5Admin Note: [facility] [place] [...] Care Team Personnel Name: Gilmer SANTOS MD, Millre Schneider Position: Reference Physician Member Role: PCP Address: Address: [address] [place] [address]- Care Team Related Persons Name: MOIZ CHACKO Name: DOMO ISAACS Address: home [address] [place] [address]
--- OUTSIDE RECORDS SUMMARY | 2023-08-13 11:35 | XMS_ITS | Continuity of Care Document ---
Author Name Unknown Organization [facility] Address [address] [place] [address]- Care Team Providers Care Safety Glass Installer Name Role Phone Gilmer SANTOS MD, Miller Schneider Primary Care Physician [phone] Encounter [facility] Date(s): 01/17/23 - 04/16/[address] [address] Encounter Diagnosis Unspecified abnormalities of gait and mobility(Final) - Discharge Disposition: A-D/C Home Attending Physician: Kulwinder Beal DO Admitting Physician: Kulwinder Beal DO Referring Physician: Kulwinder Beal DO Allergies, Adverse Reactions, Alerts No Known [...] 11/28/03 Given 1Result Comment: [07/12/2015] GIVEN AT [facility] 2Admin Note: one month ago at [facility] in [place] 3Admin Note: [facility] 4Admin Note: [facility] 5Admin Note: [facility] [place] [...] Reference Physician Member Role: PCP Address: Address: [address] [place] [address]- Care Team Related Persons Name: MOIZ CHACKO Name: DOMO ISAACS Address: home [address] [place] [address]
--- OUTSIDE RECORDS SUMMARY | 2023-08-13 11:36 | XMS_ITS | Continuity of Care Document ---
Author Name Unknown Organization [facility] Address [address] [place] [address] [address], [address] [place] [address]- Care Team Providers Care Nail Making Machine Tender Name Role Phone Ino Hurtado DO Primary Care Physician [facility]counter [facility] Date(s): 05/22/21 - 06/21/21 [facility] [address] [place] [address] Drive, [address] [place], [place] [address] Allergies, Adverse Reactions, Alerts Substance Reaction Severity [...] 11/28/03 Given 1Result Comment: [07/12/2015] GIVEN AT [facility] 2Admin Note: one month ago at [facility] in [place] 3Admin Note: [facility] 4Admin Note: [facility] 5Admin Note: [facility] [place] Medications Accu-Chek Dejah Plus Test Strips [...]
--- OUTSIDE RECORDS SUMMARY | 2023-08-13 11:36 | XMS_ITS | Continuity of Care Document ---
Author Name Unknown Organization [facility] Address [address] [place] [address] [address], [address] [place] [address]- Care Team Providers Care Focused Factory Manager Name Role Phone Ino Hurtado DO Primary Care Physician [place] [facility] [place] [place] 07/11/21 - 07/18/21 [facility] [address] [place] [address] Drive, [address] [place], [place] [address] Attending Physician: Casimiro Griffin MD Referring Physician: Jose R Wharton DO Allergies, Adverse Reactions, Alerts Substance Reaction Severity [...] 11/28/03 Given 1Result Comment: [07/12/2015] GIVEN AT [facility] 2Admin Note: one month ago at [facility] in [place] 3Admin Note: [facility] 4Admin Note: [facility] 5Admin Note: [facility] [place] Medications [...] education done 7advised pre diabetic;increased risk diabetes Vital Signs Most recent to oldest [Reference Range]: 1 Height 170.00 cm (07/11/21 10:28 AM) Weight 78.5 kg (07/11/21 10:28 AM) Body Mass Index [18.5-24.99] 27.16 *H* (07/11/21 10:28 AM) Social History Social History Type Response Smoking Status Never smoker entered on: 09/25/13 Sex
--- OUTSIDE RECORDS SUMMARY | 2023-08-13 11:36 | XMS_ITS | Continuity of Care Document ---
Author Name Unknown Organization [facility] Address [address] [place] [address]- Care Team Providers Care Gateman Name Role Phone Daniel Hurtado DO Primary Care Physician Encounter [facility] [id number] Date(s): 10/31/21 - 11/23/[address] [address] Discharge Disposition: A-D/C Home Attending Physician: Daniel Hurtado DO Admitting Physician: Daniel Hurtado DO Referring Physician: Daniel Hurtado DO Allergies, Adverse Reactions, [...] 11/28/03 Given 1Result Comment: [07/12/2015] GIVEN AT [facility] 2Admin Note: one month ago at [facility] in [place] 3Admin Note: [facility] 4Admin Note: [facility] 5Admin Note: [facility] [place] Medications [...]
--- OUTSIDE RECORDS SUMMARY | 2023-08-13 11:36 | XMS_ITS | Continuity of Care Document ---
Author Name Unknown Organization [facility] Address [address] [facility], [address] Floor, [address] [place] [address]- Care Team Providers Care Supervisor Parachute Manufacturing Name Role Phone Gilmer SANTOS MD, Miller Schneider Primary Care Physician Encounter [facility] Date(s): 12/31/22 - 01/30/23 [facility] [address] [facility], 3rd Floor, [address] [place] [address] Allergies, Adverse Reactions, Alerts No Known Allergies [...] CENTER 2Admin Note: one month ago at [facility] in [place] 3Admin Note: [facility] 4Admin Note: [facility] 5Admin Note: [facility] [place] Medications Accu-Chek Dejah Plus Test Strips See [...] Name: Gilmer SANTOS MD, Miller Schneider Position: S Ambulatory (view) Member Role: PCP Address: Address: [address] [place] [address]- Care Team Related Persons Name: MOIZ CHACKO Name: DOMO ISAACS Address: home [address] [place] [address]
--- OUTSIDE RECORDS SUMMARY | 2023-08-13 11:36 | XMS_ITS | Continuity of Care Document ---
Author Name Unknown Organization [facility] Address [address] [place] [address]- Care Team Providers Care Rustic Fence Builder Name Role Phone Gilmer SANTOS MD, Miller Schneider Primary Care Physician En[facility] Date(s): 04/10/22 - 05/10/22 [facility] [address] [place] [address]- Allergies, Adverse Reactions, Alerts No Known Allergies [...] 11/28/03 Given 1Result Comment: [07/12/2015] GIVEN AT [facility] 2Admin Note: one month ago at [facility] in [place] 3Admin Note: [facility] 4Admin Note: [facility] 5Admin Note: [facility] Medications Accu-Chek Dejah Plus Test Strips See [...]
--- OUTSIDE RECORDS SUMMARY | 2023-08-13 11:36 | XMS_ITS | Continuity of Care Document ---
Author Name Unknown Organization [facility] Address [address] [place] [id number]- Care Team Providers Care Time Study Engineer Name Role Phone Gilmer SANTOS MD, Miller Schneider Primary Care Physician Encounter [place] Date(s): 10/02/22 - 11/01/22 [facility] [address] [place] [id number]- Attending Physician: Harman Frank Admitting Physician: Harman Frank Referring Physician: Admtr, [id number] Allergies, Adverse Reactions, [...] 11/28/03 Given 1Result Comment: [07/12/2015] GIVEN AT [facility] 2Admin Note: one month ago at [facility] in [place] 3Admin Note: [facility] 5Admin Note: [facility] Medications [...] Status Never smoker entered on: 09/25/13 Sex Note * Event Display: MRI Spine, Non- BH Authored Date: Patient Care team information Care Team Personnel Name: Gilmer SANTOS MD, Miller Schneider Position: [facility] ([facility]) Member Role: PCP Address: Address: [address] [place] [id number]- Care Team Related Persons Name: MOIZ CHACKO Name: DOMO ISAACS Address: home [address] [place] [address]
--- NOTE | 2023-08-13 11:49 | MHC.OFFVIS ---
Intake Vital Signs 08/13/23 12:13 08/13/23 12:13 Height 5 ft 6 in 5 ft 6 in Weight 170 lb 170 lb BMI 27.4 27.4 BP 106/70 112/80 Blood Pressure Location Rt brachial Lt brachial Position Sitting Supine Respiration 16 16 Pulse 67 69 Pulse Source Pulse Oximeter Pulse Oximeter Pulse Oximetry (%) 97 97 Oxygen Delivery Method Room Air Room Air Comment pre-op post-op Intake Visit Reasons: BILAT DX SIJ INJ/LOCAL Allergies No Known Allergies Allergy (Verified 08/13/23 12:14) PFSH Medical History (Updated 07/22/23 @ 17:03 by Favio Morejon MD) BPH (benign prostatic hyperplasia) Fatty liver Osteoarthritis Disc herniation Chronic pruritus Ascending aortic aneurysm Atrial fibrillation Hyperlipidemia HTN (hypertension) Surgical History (Updated 06/30/21 @ 10:40 by JOEL Dumont) Hx of colonoscopy H/O hernia repair History of right shoulder replacement Social History Alcohol intake: never Physical Exam Vital Signs: Last Vital Signs Pulse 69 08/13/23 12:13 Resp 16 08/13/23 12:13 BP 112/80 08/13/23 12:13 Pulse Ox 97 08/13/23 12:13 Oxygen Delivery Method Room Air 08/13/23 12:13 BMI result Body Mass Index 27.4 Assessment & Plan Assessment & Plan (1) Spondylolisthesis at L5-S1 level: Code(s): M43.17 - Spondylolisthesis, lumbosacral region (2) Disc degeneration, lumbar: Code(s): M51.36 - Other intervertebral disc degeneration, lumbar region (3) Sacroiliitis: Code(s): M46.1 - Sacroiliitis, not elsewhere classified (4) Sacroiliac joint dysfunction of both sides: Code(s): M53.3 - Sacrococcygeal disorders, not elsewhere classified (5) Facet arthropathy, lumbar: Code(s): M47.816 - Spondylosis without myelopathy or radiculopathy, lumbar region (6) Spondylosis, lumbar, with myelopathy: Code(s): M47.16 - Other spondylosis with myelopathy, lumbar region (7) Radiculopathy, lumbar region: Code(s): M54.16 - Radiculopathy, lumbar region (8) Chronic pain syndrome: Code(s): G89.4 - Chronic pain syndrome Plan: Bilateral diagnostic sacroiliac joint injection. Informed consent was explained thoroughly to the patient. All questions about benefits and risks for the procedure were answered. Patient came to the operating room and was positioned prone on the operating table with the pillow under the pelvis. Time out was performed delineating name and of the patient, allergies and the nature of the procedure. The lower back and buttocks of the patient were prepped with ChloraPrep prepped and draped with sterile utility towels. C-arm was brought over the operating field and sq picture of patient's pelvis was demonstrated on the screen. For the right joint tilting C-arm contralateral to the site of the joint the most posterior portion of the joints was superimposed with anterior silhouette of the joint. Skin was injected in the projection of the joint slightly medial to the location of the joint with 25 gauge 1/2 inch needle using local lidocaine 2% .After that 22 gauge 3 and 1/2 inch needle was driven to the right joint in tunnel vision fashion. When needle entered the joint capsule injection of the contrast was performed demonstrating intra-articular and minimally periarticular spread of the contrast. After that 4 cc. of ropivacaine 0.5% was injected into the joint. Upon completion of the injections the needle was removed and the procedure was repeated on the left in the mirroring fashion. Sterile dressing was applied. Upon completion of the injection patient was taken outside of the operating room to the recovery room where recovered uneventfully. Plan Back in 2020 he was diagnosed with advanced grade 2 spondylolisthesis L5 on S1. Due to spondylolisthesis there are severe compression of the L5 nerve roots exiting at this level as well as mild central canal stenosis. Since then he reported his condition turned to worse and he developed urinary incontinence on top of the severe pain he reports in the axial lumbar spine. On physical examination he exhibits the signs of bilateral sacroiliitis as well as possible significant lumbar arthritis. He also exhibits signs of radiculopathy lumbar. He went for the consult with Dr. Griffin a neurosurgeon who denied him a surgery because of the older age but recommended watchful waiting because of the progression of the spondylolisthesis. Since then it was 2 years and it is possible that his spondylolisthesis progressed. I will schedule him for the MRI of the lumbar spine to evaluate possible progression of the spondylolisthesis. Because it looks that the patient is developing pelvic organ dysfunction I would like to expedite the MRI in schedule it as the urgent procedure.NO significant central canal stenosis on the MRI I will try to perform bilateral sacroiliac joint injections on this patient and see if this will alleviate his pain and to what extent. If sacroiliac joint injections will not be working for this patient I will schedule him for medial branch block injection L3-L4 does ramus L5 to isolate the area of the fractured pars defect and spondylolisthesis. If on the MRI severe spondylolisthesis and cauda equina compression will be noted hip probably have to pay a visit to a neurosurgeon again. Orders: Orders FL guidance in treatment room Today M53.3 - Sacrococcygeal disorders, not elsewhere classified Coding Level of Care Code Procedure Only Diagnoses Spondylolisthesis at L5-S1 level M43.17 Disc degeneration, lumbar M51.36 Sacroiliitis M46.1 Sacroiliac joint dysfunction of both sides M53.3 Facet arthropathy, lumbar M47.816 Spondylosis, lumbar, with myelopathy M47.16 Radiculopathy, lumbar region M54.16 Chronic pain syndrome G89.4
[2023-08-13 12:13] VITALS: BP 106/70; BP 112/80; PULSE 67; PULSE 69; RESP 16; O2SAT 97; BMI 27.4
== END 2023-08-13 12:24 | disposition home or self-care (01) ==
LOC: HO.PMCPRC 11:33
PROVIDERS: PCP Internal Medicine; Visit Provider Anesthesiology
DX: M53.3 Sacrococcygeal disorders, not elsewhere classified (principal); M46.1 Sacroiliitis, not elsewhere classified; M47.16 Other spondylosis with myelopathy, lumbar region; M47.26 Other spondylosis with radiculopathy, lumbar region; G89.4 Chronic pain syndrome; M43.17 Spondylolisthesis, lumbosacral region; M51.36 Other intervertebral disc degeneration, lumbar region
CPT/HCPCS: 27096

== ENCOUNTER 2023-08-19 10:51 | Outpatient (AMB) | payer MEDICARE, SELFPAY ==
--- NOTE | 2023-08-19 11:07 | A.OFFVIS_ITS ---
Intake Vital Signs 08/19/23 11:12 Height 5 ft 6 in Weight 170 lb BMI 27.4 BP 144/68 H Blood Pressure Location Lt brachial Position Sitting Respiration 16 Pulse 70 Pulse Source Pulse Oximeter Pulse Oximetry (%) 98 Oxygen Delivery Method Room Air Intake Visit Reasons: BILAT DX SIJ INJ 08/13/23 Allergies No Known Allergies Allergy (Verified 08/19/23 11:13) HPI HPI Comments History of Present Illness Details Daniel is back in my office after diagnostic bilateral sacroiliac joint injection which was performed on 08/13/2023. The emphasis of his complaints today is on the stiffness of the right lower extremity, weakness of the right lower extremity, inability to put weight on the right lower extremity, he says: ?It looks like my brain is not connected to my right leg. ?. He places the p ain itself as the less significant complaint. He reports that sacroiliac joint injection relieved his pain from 5 out of 10 to 3/10 for 6 hours after the procedure. That the response to longevity of the local anesthetic working however the nature of his complains make me think about spinal canal and foraminal stenosis which actually major aggravation of this patient's activities of daily living and mobility. We agreed that I will refer him to a neurosurgical consult. Six months ago he was examined by Dr. Griffin, the surgery was not offered to him. Prior: very pleasant 83 years old gentleman who presents in my office with complains on pain in the axial lumbar spine. He reported that this pain started in March2022. He was diagnosed with spondylolisthesis. He was under care of [facility] pain management where he was offered sacroiliac joint injections as well as bilateral facet joint vertebras medial branch block injection. He was found that at the [facility] does not accept his insurance so he brings his needs for care here in [facility]. He reports his pain is 5/10. He reports that he can sleep normally because of his pain but he cannot do activities of daily living he can take care of himself and he can not function normally. He needs walker for ambulation. Heat applications weather changes in movements aggravate his pain. He tried physical therapy for his pain with no results he was receiving massage therapy but also denied any results. He received MRI of the lumbar spine degrees out of which dictated below. The patient received that MRI 2 years ago in 2020. It was discovered with significant grade II spondylolisthesis and some spinal stenosis however without nerve root compressions. However since then he reported that he started to experience incontinence with urine. [facility] Medical History (Updated 07/22/23 @ 17:03 by Favio Morejon MD) BPH (benign prostatic hyperplasia) Fatty liver Osteoarthritis Disc herniation Chronic pruritus Ascending aortic aneurysm Atrial fibrillation Hyperlipidemia HTN (hypertension) Surgical History (Updated 06/30/21 @ 10:40 by JOEL Dumont) Hx of colonoscopy H/O hernia repair History of right shoulder replacement Social History Alcohol intake: never Review of Systems Const All systems reviewed & are unremarkable except as noted in HPI and below ENT Reports Normal hearing present Neuro Reports Normal hearing present, Denies Abnormal speech present, Denies confusion and Denies Sensory deficit (Neuro) Psych Denies confusion Physical Exam Vital Signs: Last Vital Signs Pulse 70 08/19/23 11:12 Resp 16 08/19/23 11:12 BP 144/68 H 08/19/23 11:12 Pulse Ox 98 08/19/23 11:12 Oxygen Delivery Method Room Air 08/19/23 11:12 BMI result Body Mass Index 27.4 Const General: no acute distress; No confusion Orientation/consciousness: patient oriented x3 and No confusion Eyes General: appearance normal, both eyes and all related structures Pupils: Equal, round and reactive pupils present EOM: EOMs intact bilaterally Neck Neck: Yes full ROM Chest Chest palpation & inspection: normal inspection of the chest Resp Effort & Inspection: normal respiratory effort, able to speak in complete sentences, normal respiratory pattern, no audible wheezes and no cough Cardio Jugular venous distension: no JVD GI Inspection: Yes normal to inspection Back/Spine/Pelvis Other: Minimal mobility of the lumbar spine. Flexing forward and flexing backwards do aggravates patient's pain. He reports that he uses walker for ambulation and it is easier for him to walk with the help of a walker. SLR is positive bilaterally. Bilateral Stinchfield test Gaenslen test Ken test and 14 finger test but not the pelvis destruction test are positive for the patient. Valsalva maneuver aggravates the patient's pain. Objective weakness of the right lower extremity, objective awkwardness of the right lower extremity, ability to maintain weight on the right lower extremity. Uses walker for ambulation with pivoting and walking on the left LE. Neuro General: patient oriented x3, gait normal and No confusion Cranial nerves: Yes CN's II-XII intact bilaterally, Yes Equal, round and reactive pupils present, Yes Normal hearing present and Yes Ability to bilaterally elevate shoulders present Speech: No Abnormal speech present Gait exam (Neuro): Normal gait present Motor exam (neuro): 5/5 motor strength present throughout Sensory Exam: No Sensory deficit (Neuro) Extrem General: No pedal edema Psych Speech and movement: Normal speech and movement present Affect: normal affect Attitude: cooperative Thought process: Normal thought process present Thought content: Normal thought content present Insight: Good insight present (Psych) Judgement: Good judgement present (Psych) Results Reviewed Results Reviewed: MR LUMBAR SPINE WITHOUT CONTRAST CLINICAL INFORMATION: Chronic pain syndrome. COMPARISON: None available. TECHNIQUE: MRI of the lumbar spine was obtained using routine sequences without contrast. FINDINGS: Chronic bilateral L5 pars defects associated with grade 2 spondylolytic anterolisthesis of L5 on S1. There is moderate to severe disc volume loss at L1-L2, L4-L5, and L5-S1. There is moderate disc volume loss at L2-L3 and L3-L4. There is disc desiccation at all lumbar levels. There is no bone marrow edema. There are no acute fractures. Modic type II endplate signal changes at L1-L2. Conus terminates at the T12-L1 level. There is bilateral perinephric stranding. Sigmoid diverticulosis. At T10-T11, facet arthropathy and ligamentum flavum thickening mildly indent the dorsal thecal sac. L1-L2: Diffuse annular disc bulge with a superimposed left paracentral disc protrusion, the latter compressing the traversing left L2 nerve root within the left subarticular zone. Disc osteophyte and facet arthropathy result in moderate left and mild right foraminal stenosis with left lateral disc osteophyte resulting in mass effect on the extraforaminal left L1 nerve root. L2-L3: Diffuse annular disc bulges in part disc osteophyte and moderate bilateral facet arthropathy. Findings in concert result in bilateral subarticular zone stenosis with mass effect on the traversing L3 nerve roots bilaterally, mild central canal stenosis, and mild to moderate bilateral foraminal stenosis. Left lateral disc osteophyte results in mass effect on the extraforaminal left L2 nerve root. L3-L4: Diffuse annular disc bulges that is in part disc osteophyte and moderate bilateral facet arthropathy and ligamentum flavum thickening. No central canal stenosis. Mild to moderate bilateral foraminal encroachment. L4-L5: Diffuse disc osteophyte complex and bilateral facet arthropathy and ligamentum flavum thickening. Findings in concert result in bilateral subarticular zone stenosis with mass effect on the traversing L5 nerve roots bilaterally and moderate right-sided foraminal stenosis with right lateral disc osteophyte resulting in mass effect on the extraforaminal right L5 nerve root. L5-S1: Grade 2 spondylolytic anterolisthesis in the setting of chronic bilateral L5 pars defects that along with uncovered disc osteophyte results in severe bilateral foraminal stenosis with significant compression of the exiting L5 nerve roots bilaterally. No central canal stenosis. IMPRESSION: - At L5-S1, there is grade 2 spondylolytic anterolisthesis in the setting of chronic bilateral L5 pars defects that along with uncovered disc osteophyte results in severe bilateral foraminal stenosis with significant compression of the exiting L5 nerve roots bilaterally. - At L4-L5, multifactorial degenerative changes result in bilateral subarticular zone stenosis with mass effect on the traversing L5 nerve roots bilaterally and moderate right-sided foraminal stenosis with right lateral disc osteophyte resulting in mass effect on the extraforaminal right L5 nerve root. - At L2-L3, multifactorial degenerative changes result in bilateral subarticular zone stenosis with mass effect on the traversing L3 nerve roots bilaterally, mild central canal stenosis, and mild to moderate bilateral foraminal stenosis. Left lateral disc osteophyte results in mass effect on the extraforaminal left L2 nerve root. - At L1-L2, a left paracentral disc protrusion compresses the traversing left L2 nerve root within the left subarticular zone and multifactorial degenerative changes result in moderate left foraminal stenosis with left lateral disc osteophyte resulting in mass effect on the extraforaminal left L1 nerve root. Assessment & Plan Assessment & Plan (1) Spondylolisthesis at L5-S1 level: Code(s): M43.17 - Spondylolisthesis, lumbosacral region (2) Disc degeneration, lumbar: Code(s): M51.36 - Other intervertebral disc degeneration, lumbar region (3) Sacroiliitis: Code(s): M46.1 - Sacroiliitis, not elsewhere classified (4) Sacroiliac joint dysfunction of both sides: Code(s): M53.3 - Sacrococcygeal disorders, not elsewhere classified (5) Facet arthropathy, lumbar: Code(s): M47.816 - Spondylosis without myelopathy or radiculopathy, lumbar region (6) Spondylosis, lumbar, with myelopathy: Code(s): M47.16 - Other spondylosis with myelopathy, lumbar region (7) Radiculopathy, lumbar region: Code(s): M54.16 - Radiculopathy, lumbar region (8) Chronic pain syndrome: Code(s): G89.4 - Chronic pain syndrome Plan On the MRI there is significant changes with progression of the foraminal stenosis with nerve root compressions in the lower lumbar spine. Majority of his complains actually not related to the pain and mostly related to inability to walk using his right lower extremity bilateral diagnostic sacroiliac joint injections on this patient resulted in some pain improvement but not improve in mobility and not improve in activities of daily living. Considering severity of the MRI image I will send him to the neurosurgical consult. Orders: Referrals Neuro Spine Referral G89.4 - Chronic pain syndrome, M43.17 - Spondylolisthesis, lumbosacral region, M47.16 - Other spondylosis with myelopathy, lumbar region, M47.816 - Spondylosis without myelopathy or radiculopathy, lumbar region, M51.36 - Other intervertebral disc degeneration, lumbar region, M54.16 - Radiculopathy, lumbar region Patient Instructions: I here by testify that I spent 40 minutes in conversation with this patient as well as in evaluating patient's images and radiology reports as well as planning his care and organizing this note. Coding Level of Care Code Est Pt Level 5 (45592) Diagnoses Spondylolisthesis at L5-S1 level M43.17 Disc degeneration, lumbar M51.36 Sacroiliitis M46.1 Sacroiliac joint dysfunction of both sides M53.3 Facet arthropathy, lumbar M47.816 Spondylosis, lumbar, with myelopathy M47.16 Radiculopathy, lumbar region M54.16 Chronic pain syndrome G89.4
[2023-08-19 11:12] VITALS: BP 144/68; PULSE 70; RESP 16; O2SAT 98; BMI 27.4
== END 2023-08-19 11:51 | disposition home or self-care (01) ==
PROVIDERS: PCP Internal Medicine; Visit Provider Anesthesiology
DX: M43.17 Spondylolisthesis, lumbosacral region (principal); M51.36 Other intervertebral disc degeneration, lumbar region; M46.1 Sacroiliitis, not elsewhere classified; M53.3 Sacrococcygeal disorders, not elsewhere classified; M47.816 Spondylosis without myelopathy or radiculopathy, lumbar region; M47.16 Other spondylosis with myelopathy, lumbar region; M54.16 Radiculopathy, lumbar region; G89.4 Chronic pain syndrome
CPT/HCPCS: 99215

== ENCOUNTER → 2023-08-19 10:51 | Outpatient (BNVA) | payer MEDICARE, SELFPAY | PROVIDERS: PCP Internal Medicine; Visit Provider Anesthesiology | DX: M43.17 Spondylolisthesis, lumbosacral region (principal); M51.36 Other intervertebral disc degeneration, lumbar region; M46.1 Sacroiliitis, not elsewhere classified; M53.3 Sacrococcygeal disorders, not elsewhere classified; M47.816 Spondylosis without myelopathy or radiculopathy, lumbar region; M47.16 Other spondylosis with myelopathy, lumbar region; M54.16 Radiculopathy, lumbar region; G89.4 Chronic pain syndrome | CPT/HCPCS: 99212 ==

== ENCOUNTER 2023-08-30 08:55 | Outpatient (AMB) | payer MEDICARE, SELFPAY ==
--- NOTE | 2023-08-30 09:32 | HO.SPINEOV ---
Intake Intake Visit Reasons: radiculopathy Intake Note: Mr. Sargent is here today c/o right leg ambulating difficulty. [place] done [place] [facility]/brought disc. Police Records Clerk Required: No Allergies No Known Allergies Allergy (Verified 08/19/23 11:13) Assessment & Plan Assessment & Plan (1) Right leg weakness: Code(s): R29.898 - Other symptoms and signs involving the musculoskeletal system Plan Dear Dr Morejon, Thank you for referring Mr Sargent to our office today. He is a very nice 83-year-old gentleman who presents to the office today for evaluation of his lumbar spine. He has a history of known lumbar stenosis and back pain issues that have been treated conservatively through the years. He tells me that about 6 weeks ago he was in his normal state of health but rather abruptly he developed significant difficulty walking. Specifically, he normally walks with a cane but noticed that his right leg was diffusely weak and he was significantly imbalanced. He also noticed around this time that he started to develop incontinence. Specifically, when he would get up to use the bathroom he would find that by the time he got there his underwear would be soaked. He denies any back pain, there is no numbness or radicular pain report down the legs. He also tells me that there is no numbness or weakness of his arms. This is strictly a feeling of diffuse weakness of his right leg and the bladder changes. He does report a history of TIAs, he is on Eliquis for atrial fibrillation. PMH: He is very unclear about many of his medical issues. What I can glean from the medical records is that he has AFib and is on Eliquis. He also had a history of a DVT in his left leg and he is also on Eliquis for that as well. History of hypertension, shoulder surgery, high blood pressure, ascending aortic aneurysm Social hx: He is lives alone, does not smoke or drink alcohol Medications: The only medications he could remember is atenolol, lisinopril and his blood thinner Eliquis, Allergies: None Physical exam: He is awake alert oriented but is forgetful at times. He is able to stand up out of a chair on his own very slowly, he has a walker and when he begins to walk he has a very hesitant gait he will have to lift his right leg up 3 times in order to create some omentum to get started walking. He has a somewhat rigid gait. He is ataxic. His face is symmetric but he has a slightly some slurred speech. Extraocular movements are intact without nystagmus. Tongue is midline, trapezius and sternocleidomastoid strength is normal. His upper arm strength in the deltoids and biceps is mildly weak as are his hands. I would rate all these is about 4/5. His left triceps is difficult to test because of shoulder injury but is about 3/5. His iliopsoas are 4-5. Distal lower extremity strength is full. He is diffusely hyperreflexic with Nelly sign. Imaging review: He has a lumbar MRI showing spondylolisthesis at L5-S1 with bilateral neuroforaminal stenosis amongst other degenerative changes but no significant central canal stenosis. He has an old cervical MRI from 2020 showing some mild degenerative changes but no cervical stenosis. 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 Impression: 83-year-old male presents for evaluation of abrupt onset and progressively worsening right leg weakness and gait imbalance with associated worsening incontinence. He has no back pain or leg pain. Denies any upper extremity symptoms. Strictly from a neurological examination standpoint, he has overlapping features of multiple conditions. He has a known history of TIAs and a right basal gangliar infarct and is on Eliquis for AFib. Given the isolated features of the imbalance of the gait and the right leg, we could be talking about a cerebellar stroke or higher up in the motor cortex. I would like to get a brain MRI to rule this out. Also the fact that he is demonstrating a diffuse weakness in the upper extremities with hyperreflexia and Cunningham sign I will need to get an updated cervical MRI to rule out cervical myelopathy. If these 2 things are negative we could consider a thoracic MRI. I will get his MRIs urgently and get back to him with the results. Thank you for allowing us to care for your patient. The total time spent with this visit with this patient was 65 minutes reviewing history, physical exam, cervical, brain a lumbar imaging review, and implementation of treatment plan or further diagnostic testing Kulwinder Ramos MD,PhD [facility] Orders: Orders MR head/brain wo con Today R29.898 - Other symptoms and signs involving the musculoskeletal system MR cervical spine wo con Today R29.898 - Other symptoms and signs involving the musculoskeletal system Coding Level of Care Code New Pt Level 5 (38933) Diagnoses Right leg weakness R29.898
== END 2023-08-30 10:03 | disposition home or self-care (01) ==
PROVIDERS: PCP Internal Medicine; Referring Provider Anesthesiology; Visit Provider Physician Assistant
DX: R29.898 Other symptoms and signs involving the musculoskeletal system (principal)
CPT/HCPCS: 99205

== ENCOUNTER → 2023-08-30 08:55 | Outpatient (BNVA) | payer MEDICARE, SELFPAY | PROVIDERS: PCP Internal Medicine; Visit Provider Physician Assistant | DX: R29.898 Other symptoms and signs involving the musculoskeletal system (principal) | CPT/HCPCS: 99202 ==

== ENCOUNTER 2023-12-31 14:48 | Outpatient (AMB) | payer MEDICARE, SELFPAY ==
--- NOTE | 2023-12-31 14:46 | MHC.OFFVIS ---
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 polyneuro/ instability, leg weak- CONF Intake Note: Patient presents for Walking is worsen and not able to be stable. Allergies No Known Allergies Allergy (Verified 12/31/23 14:53) HPI HPI Comments History of Present Illness Details 83 y/o male patient presents for new in-person visit for evaluation of gait disorder. Pt's NCV/EMG result in 2020 was chronic right lower lumbar radiculopathy. MRI of LS in 2018 was multiple DJD and he had nerve block three years ago. No more pain on his back. Pt reports losing balance, and difficulty walking, mainly difficulty starting walking and shuffling. It has been years and worsened lately, and he uses walker. 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 He has mini stationary bike and exercise daily. Pt has occasional drooling. Anil difficulty swallowing. Anil changing his voice or writing. Denies light headedness or dizziness. Anil REM behavior. [facility] Medical History (Updated 01/13/24 @ 15:40 by Dameon Martin CNP) BPH (benign prostatic hyperplasia) Fatty liver Osteoarthritis Disc herniation Chronic pruritus Ascending aortic aneurysm Atrial fibrillation Hyperlipidemia HTN (hypertension) Surgical History Hx of colonoscopy H/O hernia repair History of right shoulder replacement Family History (Updated 12/31/23 @ 14:56 by Dominique Hobson CMA) Father History of heart attack Social History Alcohol intake: never Physical Exam Vital Signs: Last Vital Signs Pulse 77 12/31/23 14:58 BP 122/70 12/31/23 14:58 Pulse Ox 99 12/31/23 14:58 Oxygen Delivery Method Room Air 12/31/23 14:58 BMI result Body Mass Index 25.8 Const General: cooperative Orientation/consciousness: patient oriented x3 Neuro Other: Has good facial expression. No tremor, or cogwheel rigidity. Freezing and shuffling when initiate walking. Has good steps after start walking. 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 Goss. Advised patient to try Sinemet 10-100 mg BID. Advised patient to increase fluid intake to prevent light headedness and dizzienss. Continue to do daily exercise. Medications: New carbidopa-levodopa 10-100 mg (Sinemet) 1 tab PO BID 60 tabs 2RF 30 days Coding Level of Care Code New Pt Level 4 (01305) Diagnoses Gait difficulty R26.9 Cerebellar ataxia G11.9
[2023-12-31 14:58] VITALS: BP 122/70; PULSE 77; O2SAT 99; BMI 25.8
== END 2023-12-31 15:36 | disposition home or self-care (01) ==
LOC: HO.HSMS 14:48
PROVIDERS: PCP Internal Medicine; Visit Provider Nurse Practitioner Family
DX: G11.9 Hereditary ataxia, unspecified (principal)
CPT/HCPCS: 99204

== ENCOUNTER → 2023-12-31 14:48 | Outpatient (BNVA) | payer MEDICARE, SELFPAY | PROVIDERS: PCP Internal Medicine; Visit Provider Nurse Practitioner Family | DX: R26.9 Unspecified abnormalities of gait and mobility (principal); G11.9 Hereditary ataxia, unspecified | CPT/HCPCS: 99202 ==

== ENCOUNTER 2024-02-24 13:10 | Outpatient (AMB) | payer MEDICARE, SELFPAY ==
--- NOTE | 2024-02-24 13:13 | A.OFFVIS_ITS ---
Vital Signs 02/24/24 13:27 Height 5 ft 7 in Weight 165 lb BMI 25.8 BP 122/70 Blood Pressure Location Rt brachial Position Sitting Pulse 76 Pulse Source Pulse Oximeter Pulse Oximetry (%) 99 Oxygen Delivery Method Room Air Intake Visit Reasons: f/u polyneuro/instability/leg weak -CONF Intake Note: Patient presents for f/u. New meds are not working and pt. is starting to dec line. Allergies No Known Allergies Allergy (Verified 02/24/24 13:26) HPI Comments Details: 84 y/o male patient presents for follow up of gait disorder. Pt reports he tried carbidopa-levodopa 10/100 BID but he felt more weak and losing balance. He feels his knees are very weak. Pt reports losing balance, and difficulty walking, mainly difficulty starting walking and shuffling. He uses walker at home and uses wheel chair outside. Pt's NCV/EMG result in 2020 was chronic right lower lumbar radiculopathy. MRI of LS in 2017 was multiple DJD and he had nerve block three years ago. No more pain on his back. 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 He has mini stationary bike and exercise daily. Pt has occasional drooling. Anil difficulty swallowing. Anil changing his voice or writing. Denies light headedness or dizziness. Anil REM behavior. [facility], [facility] Medical History (Updated 01/13/24 @ 15:40 by Dameon Martin CNP) BPH (benign prostatic hyperplasia) Fatty liver Osteoarthritis Disc herniation Chronic pruritus Ascending aortic aneurysm Atrial fibrillation Hyperlipidemia HTN (hypertension) Surgical History Hx of colonoscopy H/O hernia repair History of right shoulder replacement Family History (Updated 12/31/23 @ 14:56 by Dominique Hobson CMA) Father History of heart attack Social History Alcohol intake: never Review of Systems Const All systems reviewed & are unremarkable except as noted in HPI and below Physical Exam Const General: cooperative Orientation/consciousness: patient oriented x3 Neuro Other: Has good facial expression. No tremor, or cogwheel rigidity. Freezing and shuffling when initiate walking. Has good steps after start walking. 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 Advised patient to increase fluid intake to prevent light headedness and dizziness. Continue to do daily exercise. Refer patient to [facility] for home physical therapy for gait training and lower extremities weakness. 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
[2024-02-24 13:27] VITALS: BP 122/70; PULSE 76; O2SAT 99; BMI 25.8
== END 2024-02-24 14:07 | disposition home or self-care (01) ==
PROVIDERS: PCP Internal Medicine; Visit Provider Nurse Practitioner Family
DX: G11.9 Hereditary ataxia, unspecified (principal)
CPT/HCPCS: 99213

== ENCOUNTER → 2024-02-24 13:10 | Outpatient (BNVA) | payer MEDICARE, SELFPAY | PROVIDERS: PCP Internal Medicine; Visit Provider Nurse Practitioner Family | DX: M47.16 Other spondylosis with myelopathy, lumbar region (principal); M54.16 Radiculopathy, lumbar region; G11.9 Hereditary ataxia, unspecified | CPT/HCPCS: 99212 ==

== ENCOUNTER 2024-09-03 14:15 | Outpatient (AMB) | payer MEDICARE, SELFPAY ==
[2024-09-03 14:17] VITALS: BP 115/62; PULSE 69; O2SAT 98
--- NOTE | 2024-09-03 14:17 | A.OFFVIS_ITS ---
Vital Signs 09/03/24 14:17 Height 5 ft 7 in BP 115/62 Blood Pressure Location Lt brachial Position Sitting Pulse 69 Pulse Source Pulse Oximeter Pulse Oximetry (%) 98 Oxygen Delivery Method Room Air Intake Visit Reasons: 6 month F/U Cell Feed Department Supervisor Required: No Accompanied by: Son Allergies No Known Allergies Allergy (Verified 09/03/24 14:21) HPI Comments Details: 84-yr-old male presents for f/u visit of gait disorder. Pt is accompanied by his son, Erick. Pt was last seen by our former colleague Dameon Martin NP. Since the last visit, pt has contacted the office with concerns about his gait. His CD-LD dose was increased to 1 25-100mg tab qid. However pt is not sure if this has been beneficial. Pt's primary concerns are: pt states his PD is getting worse. He cannot take a step w/o his walker- as his balance is off and he will just fall. He states he has to concentrate to initiate a breathe and then will freeze after 4-5 steps. Notes has more difficulty moving LLE. Pt's current mobility medication regimen: CD-LD 25-100mg 1 tab QID w/ food. He may forget the noon dose, and then take 2 tabs in the evening. 09/02/2023, C-spine MRI, multilevel moderate-severe spinal canal stenosis, multilevel neuroforaminal stenosis, no cord signal abnormality. 2020, MR/MR head/brain wo con IMPRESSION: No intracranial mass lesion, infarction, hemorrhage or evidence of hydrocephalus. Small chronic right basal ganglia lacunar infarct. ADL's: Ind but slow Hyposmia: unsure Swallowing: no issues Cough: denies Drooling: more recently drooling at night Orthostatic lightheadedness: denies Constipation: denies Urinary symptoms: denies Tremor: denies Dyskinesia: denies Stiffness: denies Gait changes: as above Freezing: as above Falls: last fall was 3 months ago Mood: no issues Hallucinations: denies Memory: denies Sleep: not sleeping well- over the last 6 months. sometimes wakes up at night, itching his head. denies h/o parasomnias. Exercise: uses floor peddler Pain: denies neck/back pain- has spinal stenosis. 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 [facility] Medical History (Updated 09/03/24 @ 17:59 by GEOFF Frances) Stroke of right basal ganglia BPH (benign prostatic hyperplasia) Fatty liver Osteoarthritis Disc herniation Chronic pruritus Ascending aortic aneurysm Atrial fibrillation Hyperlipidemia HTN (hypertension) Surgical History Hx of colonoscopy H/O hernia repair History of right shoulder replacement Family History Father History of heart attack Social History Alcohol intake: never Review of Systems Const All systems reviewed & are unremarkable except as noted in HPI and below Physical Exam Vital Signs: Last Vital Signs Pulse 69 09/03/24 14:17 BP 115/62 09/03/24 14:17 Pulse Ox 98 09/03/24 14:17 Oxygen Delivery Method Room Air 09/03/24 14:17 Const General: cooperative and no acute distress Resp Effort & Inspection: normal respiratory effort and able to speak in complete sentences Neuro Other: General: A&O x's 3 Expression: Slight decreased expression Voice: ok Tremor: none Tone: BUE rigidity Dyskinesia: none BUE RADHA: poor fluidity on left FFM: Decreased, poor fluidity, more son on left Foot taps: Decreased, poor fluidity, more so on left Gait: very slow to stand, needs assist, could not initiate step- even w/ support of son/examiner- pt does not have walker w/ him. Psych: pleasant affect Assessment & Plan Assessment & Plan (1) Shuffling gait: Code(s): R26.89 - Other abnormalities of gait and mobility Category: Medical (2) Bradykinesia: Code(s): R25.8 - Other abnormal involuntary movements Category: Medical (3) Rigidity: Code(s): R29.898 - Other symptoms and signs involving the musculoskeletal system Category: Medical Plan Pt advised to undergo DaTscan- to assess for presence of decreased/asymmetric dopaminergic uptake within bilateral basal ganglia. Pt does have a h/o right basal ganglia lacunar infarct, however on exam today, pt cannot initiate step w/ either Right or left lower extremity. This raises possibility for a PD process, as well as multifactoiral etiology as pt has known mod-severe multilevel cervical spinal and neuroforaminal stenosis and l-spine degenerative changes. In the meantime, increase CD-LD 25-100mg to 2 tabs in am, 1 at 12pm, 2 tabs at 4pm, 1 tab at 8pm. Discussed how to optimally take CD-LD- at least 30 minutes before protein intake. Use walker. Could consider trying a U-Step walker. Future considerations- PT; Requesting f/u neurosurgery consult. Pt to follow-up in 3-6 months or sooner prn. Orders: Orders DaTscan Today I63.81 - Other cerebral infarction due to occlusion or stenosis of small artery, R25.8 - Other abnormal involuntary movements, R26.89 - Other abnormalities of gait and mobility, R29.898 - Other symptoms and signs involving the musculoskeletal system Medications: Changed From carbidopa-levodopa 25-100 mg 1 tab PO QID 90 days 360 tabs 1RF To carbidopa-levodopa 25-100 mg 2 tabs in am, 1 tab at noon, 2 tabs in evening, and 1 tab at night orally 4 times a day; 540 tabs 1RF 90 days Coding Level of Care Code Est Pt Level 4 (70323) Diagnoses Shuffling gait R26.89 Bradykinesia R25.8 Rigidity R29.898
== END 2024-09-03 15:32 | disposition home or self-care (01) ==
LOC: HO.HSMS 14:16
PROVIDERS: PCP Internal Medicine; Visit Provider Nurse Practitioner Family
DX: R26.89 Other abnormalities of gait and mobility (principal); R25.8 Other abnormal involuntary movements; R29.898 Other symptoms and signs involving the musculoskeletal system
CPT/HCPCS: 99214

== ENCOUNTER → 2024-09-03 14:15 | Outpatient (BNVA) | payer MEDICARE, SELFPAY | PROVIDERS: PCP Internal Medicine; Visit Provider Nurse Practitioner Family | DX: R26.89 Other abnormalities of gait and mobility (principal); R25.8 Other abnormal involuntary movements; R29.898 Other symptoms and signs involving the musculoskeletal system | CPT/HCPCS: 99212 ==

== ENCOUNTER 2025-03-16 14:21 | Emergency (ER) | payer MEDICARE, SELFPAY ==
--- NOTE | ~2025-03-16 | CT_ITS ---
EXAMINATION: CT HEAD WITHOUT CONTRAST CLINICAL INFORMATION: fall on Eliquis COMPARISON: Correlated to MRI dated July 18, 2021. TECHNIQUE: Contiguous axial imaging was performed from the skull base to vertex without intravenous administration of contrast. This CT examination was performed using dose optimization techniques as appropriate, variously including the following: *Automated exposure control *Adjustment of mA and/or kV according to patient size (this includes techniques or standardized protocols for targeted exams where dose is matched to indication/reason for exam; i.e. extremities or head) *Use of iterative reconstruction technique DLP: 826 mGy-cm FINDINGS: No acute cortical disruption in the bony calvarium or the skull base. No acute intracranial hemorrhage, mass effect, midline shift, hydrocephalus or herniation. Gonzalez-white matter differentiation is normal. Prominence of the extra-axial CSF spaces, cerebral sulci and ventricles as well as the cerebellar folia. 5 mm isodensity in the anterior third ventricle. Old lacunar infarcts, basal ganglia and rosario radiata white matter. Calcified plaques in the cavernous supraclinoid segments both ICAs and V4 segments of the vertebral arteries. There is attenuation within the right tympanic cavity and mastoid antrum. The ossicles are intact. For pneumatization right mastoid air cells. Tympanic cavity and mastoid cells on the left petrous bone are aerated. Small retention cyst versus polyp in the left maxillary sinus. Fat density lesion in the right frontal soft tissue scalp region. CT/CT head/brain wo IV con IMPRESSION: No acute fracture, bony calvarium. No acute intracranial hemorrhage. Small vessel occlusive disease. Atherosclerosis disease. Inflammatory versus infectious process versus less likely cholesteatoma, right petrous bone. 5 mm round isodensity, anterior third ventricle. 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
--- NOTE | ~2025-03-16 | XR_ITS ---
EXAMINATION: XR KNEE, RIGHT CLINICAL INFORMATION: pain COMPARISON: None available. TECHNIQUE: AP oblique lateral views of the right knee. FINDINGS: Joint space narrowing involving the lateral compartment with associated sclerotic articular surface of the lateral tibial plateau and lateral femoral condyle. Small marginal osteophyte formation and lateral femoral condyles and both tibial plateau. No acute cortical disruption or malalignment. There is a 1.2 cm well-corticated calcification in the suprapatellar bursa without evidence effusion. Vascular calcifications. Osteopenia versus osteoporosis. XR/XR knee RT 4V IMPRESSION: No acute fracture or dislocation. Medial compartment osteoarthrosis. 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 Atherosclerosis disease, peripheral. Electronically signed by: Selvin Willis MD 03/16/2025 03:38 PM EDT
[2025-03-16 14:32] VITALS: BP 136/68; PULSE 50; O2SAT 97
[2025-03-16 14:35] VITALS: BP 181/77; PULSE 80; RESP 18; TEMP 36.6; O2SAT 97; BMI 27.8
--- NOTE | 2025-03-16 14:38 | ED_ITS ---
HPI - General Adult General Chief complaint: Extremity Injury, Lower Stated complaint: R knee pain and swelling Time Seen by Provider: 03/16/25 14:36 Source: patient Mode of arrival: EMS Limitations: no limitations History of Present Illness HPI narrative: This is an 85-year-old man with a past medical history of hypertension, hyperlipidemia, atrial fibrillation on Eliquis, CVA, Parkinson's disease who presents for evaluation after fall and right knee pain. Patient states that he has had ongoing difficulty walking over the last several months due to his Parkinson's disease. He states that uses a walker at home, but states that he has difficulty using his walker. He states that he did take his comfortable leaving the department of this morning, but has not taken his 2nd dose yet today. He states that 2 days prior to presentation he was having difficulty walking and was leaned up against a wall and subsequently fell down onto his right knee with his right leg bent backwards. He states worsening pain in his right knee and swelling. He states that he has a torn meniscus in his right knee, which he has not had repaired surgically. He states no associated syncope. He states no associated headache, vision changes, chest pain, neck pain, back pain, abdominal pain, nausea or vomiting associated with this fall. He states that he lives alone at this time and is not having any physical therapy. He states no urinary symptoms. Related Data Home Medications ?Medication ?Instructions ?Recorded ?Confirmed ascorbate calcium (vitamin C) 1,000 mg PO DAILY 09/27/20 03/16/25 multivitamin (Daily Multi-Vitamin 1 tab PO DAILY 07/22/23 03/16/25 tablet) gabapentin 200 mg PO BEDTIME 03/16/25 03/16/25 trazodone 50 mg PO BEDTIME 03/16/25 03/16/25 Previous Rx's ?Medication ?Instructions ?Recorded apixaban 5 mg tablet (Eliquis) 5 mg PO BID 90 days #180 tabs 03/10/22 atenolol 25 mg tablet 25 mg PO DAILY 90 days #90 tabs 03/29/22 lisinopril 10 mg tablet 10 mg PO DAILY 90 days #90 tabs 03/29/22 atorvastatin 20 mg tablet 20 mg PO DAILY 90 days #90 tabs 10/29/22 carbidopa 25 mg-levodopa 100 mg See Rx Instructions PO QID 90 days 01/29/25 tablet #540 tabs Allergies Allergy/AdvReac Type Severity Reaction Status Date / Time No Known Allergies Allergy Verified 03/16/25 14:36 Review of Systems 2 Review of Systems: ROS as per HPI [facility] Past Medical History Medical History Hereditary and idiopathic neuropathy, unspecified Ataxic gait 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 BPH (benign prostatic hyperplasia) Fatty liver Osteoarthritis Disc herniation Chronic pruritus Ascending aortic aneurysm Atrial fibrillation Hyperlipidemia HTN (hypertension) Surgical History Hx of colonoscopy H/O hernia repair History of right shoulder replacement Family History Family History Father History of heart attack Social History Social History Alcohol intake: never Smoked in Last 30 Days: No Use of substances other than those prescribed or required for medical reasons: No Advance Directives: Yes Advance Directives Information Provided: Yes Advance Directives on File: No Physical Exam ED Vital Signs: Vital Signs - 24 hr 03/16/25 14:35 03/16/25 14:50 03/16/25 21:47 Temperature 97.8 F 97.8 F 98.4 F Pulse Rate 80 80 85 Respiratory Rate 18 18 20 Blood Pressure 181/77 H 181/77 H 120/54 L Pulse Oximetry 97 97 97 Oxygen Delivery Method Room Air Room Air 03/17/25 01:33 03/17/25 06:21 03/17/25 07:55 Temperature 98.3 F 100.5 F H Pulse Rate 82 76 76 Respiratory Rate 20 20 Blood Pressure 131/66 128/52 L 128/52 L Pulse Oximetry 97 96 96 Oxygen Delivery Method Room Air Room Air 03/17/25 09:09 Temperature Pulse Rate Respiratory Rate Blood Pressure 132/77 Pulse Oximetry Oxygen Delivery Method BMI result Body Mass Index 27.8 Gen: NAD, AOx3 HEENT: NCAT, EOMI, normal conjunctiva CV: RRR Pulm: CTAB, no increased work of breathing GI: Soft, NTND, no rebound, guarding or rigidity MSK: No midline vertebral tenderness to palpation, full active range motion with neck flexion/extension, right knee with edema medially and of ecchymosis, intact active range motion with the right knee flexion/extension albeit mild to moderate limitation secondary to pain, no right knee erythema, tenderness to palpation to the medial aspect of the right knee, no extremity deformity, no asymmetrical calf edema/erythema/TTP Neuro: CN 2-12 grossly intact, no motor or sensory deficits Skin: Warm, dry Course Reevaluation(s) Reevaluation #1: patient seen and evaluated by Physical therapy this morning. Short term rehab is recommended. Patient is declining short term rehab. assistant kitchen manager met with patient and son-in-law. They feel he can safely return home. There is going to be referral for visiting nursing. The family is also agreeable to [facility]. Family will transport him home. Stable for discharge with outpatient follow-up. Physician observation discontinued at this time. He does not require medical admission to the hospital and can safely be discharged home per his request. Time: 09:27 Medications Administered Generic Name Dose Route Start Last Admin Trade Name Freq PRN Reason Stop Dose Admin Acetaminophen 650 mg 03/16/25 17:00 03/17/25 06:08 Acetaminophen 325 Mg Tablet PO 650 mg Q6H VALERIANO Administration Apixaban 5 mg 03/16/25 21:00 03/17/25 09:09 Apixaban 5 Mg Tablet PO 5 mg BID VALERIANO Administration Atorvastatin Calcium 20 mg 03/17/25 09:00 03/17/25 09:09 Atorvastatin Calcium 20 Mg Tablet PO 20 mg DAILY VALERIANO Administration Lisinopril 10 mg 03/17/25 09:00 03/17/25 09:09 Lisinopril 10 Mg Tablet PO 10 mg DAILY VALERIANO Administration Protocol Multivitamins/Vitamin C 1 tab 03/17/25 09:00 03/17/25 09:10 Multivitamin Tablet PO 1 tab DAILY VALERIANO Administration Discontinued Medications Generic Name Dose Route Start Last Admin Trade Name Freq PRN Reason Stop Dose Admin Acetaminophen 650 mg 03/16/25 14:53 03/16/25 15:45 Acetaminophen 325 Mg Tablet PO 650 mg Q6H PRN Administration Pain, Mild (Pain Scale 1-3) Carbidopa/Levodopa 1 tab 03/16/25 14:54 03/16/25 15:46 Carbidopa/Levodopa 25/100 Tablet PO 03/16/25 14:55 1 tab ONCE ONE Administration Diphenhydramine HCl 50 mg 03/17/25 01:10 03/17/25 01:19 Diphenhydramine Hcl 25 Mg Capsule PO 03/17/25 01:11 50 mg ONCE ONE Administration Medical Decision Making Medical Decision Making [facility] Narrative: Differential diagnosis includes, but is not limited to traumatic intracranial hemorrhage, contusion, strain, sprain, fracture. Patient is afebrile and hemodynamically stable on room air. Exam is benign and reassuring. I reviewed the patient's labs, viral panel and diagnostic imaging as below. Patient is provided scheduled Tylenol and p.r.n. oxycodone for breakthrough pain. Home medications and diet ordered. I discussed the patient's care and management he is well as plan for coordinated care/physical therapy with the patient and patient's daughter at the bedside. They state understanding and state they are agreeable to this plan of care. All questions answered. Care is transitioned to oncoming physician, Dr. Rahman, at the end of my shift with disposition pending PT/CC consultation. Admission/Observation Consideration of admission/observation: Escalation of care including admission/observation considered Consult Healthcare Provider Management of the patient was discussed with: Bus System Operator I discussed with the loss prevention consultant, Karena Gan RN, who states that the patient will board with us overnight for physical therapy evaluation. Lab Data [facility] Lab Attestation statement: I reviewed the patient's lab results. Labs notable for stable anemia with hemoglobin 9.8, thrombocytopenia, metabolic panel overall reassuring. Viral panel negative 03/16/25 15:50 03/16/25 15:50 Labs: Lab Results 03/16/25 03/16/25 03/17/25 Range/Units 15:50 16:57 06:10 WBC 10.3 (4.8-10.8) X10*3/uL RBC 4.59 L (4.60-5.80) X10*6/uL Hgb 11.8 L (14.0-18.0) g/dl Hct 36.2 L (42.0-52.0) % MCV 78.9 L (80.0-98.0) fL MCH 25.7 L (27.0-33.0) pg MCHC 32.6 (31.0-36.0) g/dl RDW 16.7 H (11.0-16.0) % Plt Count 141 L (160-400) X10*3/uL MPV 10.1 (9.4-12.4) fL Immature Gran % (Auto) 1.0 H (0.0-0.4) % Neut % (Auto) 82.5 H (45-73) % Lymph % (Auto) 9.6 L (20-40) % Haakon % (Auto) 6.7 (2-11) % Eos % (Auto) 0.1 (0-4) % Baso % (Auto) 0.1 (0-2) % Lymph # (Auto) 1.0 L (1.2-4.9) X10*3/uL Haakon # (Auto) 0.7 (0.1-1.2) X10*3/uL Eos # (Auto) 0.0 (0.0-0.4) X10*3/uL Baso # (Auto) 0.0 (0.0-0.2) X10*3/uL Abs Immat Gran (auto) 0.10 H (0.00-0.03) X10*3/uL Absolute Neuts (auto) 8.5 H (2.0-8.3) x10*3/uL Absolute Nucleated RBC 0.000 (0.0-0.012) X10*3/uL Nucleated RBC % (auto) 0.0 (0.0-0.2) /100WBC Sodium 133 L (135-145) mmol/L Potassium 4.6 (3.3-5.1) mmol/L Chloride 101 (96-108) mmol/L Carbon Dioxide 25 (22-29) mmol/L Anion Gap 12 (12-20) BUN 23 H (9-16) mg/dL Creatinine 0.86 (0.5-1.4) mg/dL Estim Creat Clear Calc 63.5 Estimated GFR > 60 Random Glucose 126 H (60-115) mg/dL Calcium 9.0 (8.4-10.2) mg/dL Total Bilirubin 1.2 H (0.0-1.0) mg/dL AST 49 H (5-37) U/L ALT 6 (0-40) U/L Alkaline Phosphatase 74 (39-117) U/L Total Protein 6.2 L (6.5-8.0) g/dL Albumin 3.7 (3.5-5.0) g/dL Urine Color Yellow Urine Appearance Clear Urine pH 6.0 (5.0-9.0) Ur Specific [place] 1.025 (1.005-1.025) Urine Protein Negative (Neg-Trace) mg/dL Urine Glucose (UA) Negative (Negative) mg/dL Urine Ketones 15 (Negative) mg/dL Urine Blood Negative (Negative) Urine Nitrite Negative (Negative) Ur Leukocyte Esterase Negative (Negative) Urine RBC 0-2 (0-2) /HPF Urine WBC 0-5 (0-5) /HPF Ur Squamous Epith Cells 0-2 (0-2) /HPF Urine Bacteria None Seen (None Seen) Hyaline Casts 0-2 (0-2) /LPF Influenza Type A (PCR) NEGATIVE (Negative) Influenza Type B (PCR) NEGATIVE (Negative) RSV RNA Qual (PCR) NEGATIVE (Negative) SARS-CoV-2 RNA (RT-PCR) NEGATIVE (Negative) Independent Interpretation I performed an independent interpretation of an: Plain X-Ray and CT Scan Interpretation: X-ray of the right knee demonstrates no acute fracture. CT imaging of the head demonstrates no acute intracranial hemorrhage Radiology Impression Discussion of test interpretation with radiology: I have reviewed the radiologist's reading. Radiologist Impression: XR/XR knee RT 4V IMPRESSION: No acute fracture or dislocation. Medial compartment osteoarthrosis. 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 Atherosclerosis disease, peripheral. Electronically signed by: Selvin Willis MD 03/16/2025 03:38 PM EDT RP Dictated By: Selvin Campbell MD Signed By: <Electronically signed by Selvin Palacios MD in OV> 03/16/[address]/CT head/brain wo IV con IMPRESSION: No acute fracture, bony calvarium. No acute intracranial hemorrhage. Small vessel occlusive disease. Atherosclerosis disease. Inflammatory versus infectious process versus less likely cholesteatoma, right petrous bone. 5 mm round isodensity, anterior third ventricle. Consider a colloid cyst Electronically signed by: Selvin Willis MD 03/16/2025 03:35 PM EDT RP Dictated By: Selvin Campbell MD Signed By: <Electronically signed by Selvin Palacios MD in OV> 03/16/25 [id number] Independent Historian Clinical information obtained from an independent historian. History obtained from or confirmed by: Other Daughter contributes to history Discharge Plan Discharge Clinical Impression: Fall, Contusion of knee, right Patient Disposition: Home, Self-Care Instructions: Fall Prevention for Older Adults (ED), Contusion in Adults (ED) Additional Instructions: recommend follow-up with your primary care doctor as well as Orthopedics for further evaluation and treatment. Recommend compression of the knee with an Dinesh wrap. Ice and elevate when able. Take Tylenol as needed for pain. If you develop new or worsening symptoms call 911 or come back to the ER for further evaluation. XR/XR knee RT 4V IMPRESSION: No acute fracture or dislocation. Medial compartment osteoarthrosis. 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 Atherosclerosis disease, peripheral. Prescriptions: No Action Eliquis 5 mg tablet 5 mg PO BID 90 Days Qty: 180 2RF atenolol 25 mg tablet 25 mg PO DAILY 90 Days Qty: 90 1RF lisinopril 10 mg tablet 10 mg PO DAILY 90 Days Qty: 90 1RF atorvastatin 20 mg tablet 20 mg PO DAILY 90 Days Qty: 90 1RF carbidopa-levodopa 25-100 mg tablet See Rx Instructions PO QID 90 Days Qty: 540 1RF Rx Instructions: 2 tabs in am, 1 tab at noon, 2 tabs in evening, and 1 tab at night orally 4 times a day; gabapentin 100 mg 200 mg PO BEDTIME trazodone 50 mg 50 mg PO BEDTIME ascorbate calcium (vitamin C) 1,000 mg PO DAILY multivitamin [Daily Multi-Vitamin] Tablet 1 tab PO DAILY Referrals: [facility] [Provider Group] ( Right knee pain status post fall, on Eliquis) Phi Valencia MD [Primary Care Provider] - Print Language: Mexican
[2025-03-16 14:50] VITALS: BP 181/77; PULSE 80; RESP 18; TEMP 36.6; O2SAT 97
[2025-03-16] MEDS: Acetaminophen 325 MG TABLET 650 MG PO ×2 (15:45→22:26)
[2025-03-16] MEDS: Carbidopa/Levodopa 25/100 TABLET 1 TAB PO (15:46)
[2025-03-16 15:56] LABS: MANUAL DIFF FLAG NO
[2025-03-16 15:59] LABS: Basophils Percent Auto 0.1 % (0-2); Eosinophils Percent Auto 0.1 % (0-4); Hematocrit 36.2 % (42.0-52.0); Hemoglobin 11.8 g/dl (14.0-18.0); Lymphocytes Percent Auto 9.6 % (20-40); Mean Corpuscular HGB Conc 32.6 g/dl (31.0-36.0); Mean Corpuscular Hemoglobin 25.7 pg (27.0-33.0); Mean Corpuscular Volume 78.9 fL (80.0-98.0); Mean Platelet Volume 10.1 fL (9.4-12.4); Monocytes Absolute Auto 0.7 X10*3/uL (0.1-1.2); Monocytes Percent Auto 6.7 % (2-11); Neutrophils Absolute Auto 8.5 x10*3/uL (2.0-8.3); Neutrophils Percent Auto 82.5 % (45-73); Platelet Count 141 X10*3/uL (160-400); Red Blood Count 4.59 X10*6/uL (4.60-5.80); Red Cell Distribution Width 16.7 % (11.0-16.0); White Blood Count 10.3 X10*3/uL (4.8-10.8)
[2025-03-16 16:20] LABS: Alanine Aminotransferase 6 U/L (0-40); Albumin Level 3.7 g/dL (3.5-5.0); Alkaline Phosphatase 74 U/L (39-117); Anion Gap 12 (12-20); Aspartate Amino Transferase 49 U/L (5-37); Bilirubin Total 1.2 mg/dL (0.0-1.0); Blood Urea Nitrogen 23 mg/dL (9-16); Carbon Dioxide 25 mmol/L (22-29); Chloride 101 mmol/L (96-108); Creatinine Clr Calc Pharmacy 63.5; Estimated Glomerular Filt Rate > 60; Glucose Random 126 mg/dL (60-115); Potassium 4.6 mmol/L (3.3-5.1); Sodium 133 mmol/L (135-145); Total Protein 6.2 g/dL (6.5-8.0)
--- NOTE | 2025-03-16 16:31 | MHC.CM.ED ---
Received case management consult from Dr Oviedo. Patient came to the ER due to right knee pain. Work up essentially negative. Physical therapy eval ordered and pending. Met with patient and daughter, Margy, in regards to discharge planning. Patient lives alone, ambulates independent and receives [facility] through [facility]. PCP verified. Patient's daughter has a copy of HCP and will obtain a copy for CM. Both are aware physical therapy eval is not available until tomorrow and patient will remain in ER overnight. Patient and Margy agreeable to referral being broadcasted in [facility] with bed offers being discussed with patient. Referral will be broadcasted. Continue to monitor for d/c needs.
--- OUTSIDE RECORDS SUMMARY | 2025-03-16 16:31 | XMS_ITS | Clinical Summary ---
Author Organization [facility] Address [address] [place] [address] Care Team Providers Care Right Of Way Maintenance Supervisor Name Role Phone Daniel Hurtado DO Primary Care Provide r Allergies No known active allergies Medications Medication Sig Dispensed Refills Start Date End Date Status apixaban (ELIQUIS) 5 MG TABS tablet Take 5 mg by mouth every 12 (twelve) hours. 0 Active atenolol (TENORMIN) tablet 25 mg Take 25 mg by mouth daily. 0 Active lisinopril (PRINIVIL,ZESTRIL) tablet 10 mg Take 10 mg by mouth daily. 0 Active acetaminophen (TYLENOL EXTRA STRENGTH) 500 MG tablet Take 1,000 mg by mouth 3 (three) times a day as needed. 0 Active Active Problems No known active problems Family History Medical History Relation Name Comments Diabetes Maternal Grandmother Heart failure Mother Relation Name Status Comments Maternal Grandmother Mother Social History Tobacco Use Types Packs/Day Years Used Date Smoking Tobacco: Never Smokeless Tobacco: Never Alcohol Use Standard Drinks/Week Comments No 0 (1 standard drink = 0.6 oz pur e alcohol) Sex and Gender Information Value Date Recorded Sex Assigned at Not on file Gender Identity Not on file Sexual Orientation Not on file Last Filed Vital Signs Vital Sign Reading Time Taken Comments Blood Pressure 151/66 04/09/2018 2:06 PM EDT Pulse 71 04/09/2018 2:06 PM EDT Temperature 36.4 ??C (97.6 ??F) 04/09/2018 2:06 PM ED T Respiratory Rate - - Oxygen Saturation - - Inhaled Oxygen Concentration - - Weight 83.6 kg (184 lb 6.4 oz) 04/09/2018 2:06 P M EDT Height 172.7 cm (5' 8 ) 04/09/2018 2:06 PM EDT Body Mass Index 28.04 04/09/2018 2:06 PM EDT Plan of Treatment Health Maintenance Due Date Last Done Comments COVID-19 Vaccine (#1) 1938 Depression Screening 1950 Preventative Health Evaluation 02/01/1956 DTap / Tdap / Td (1 - Tdap) 1957 Shingrix-Zoster Vaccine (1 o f 2) 02/01/1988 Fall Risk Assessment 2003 RSV Adult > 60+ Yrs or (1 - 1-dose 75+ series) 2013 Influenza Vaccine (#1) 2024 07/09/2017 Pneumococcal Vaccine Completed 08/07/2017, 08/05/2015, 11/28/2003 Hepatitis B Vaccines Aged Out No long er eligible based on patient's age to complete this topic RSV Ped < 20 months Aged Out No longe r eligible based on patient's age to complete this topic Care Teams Right Of Way Maintenance Supervisor Relationship Specialty Start Date End Date Daniel Hurtado DO [address] [id number] PCP - General Occupational Medicine 06/13/21
--- OUTSIDE RECORDS SUMMARY | 2025-03-16 16:31 | XMS_ITS | Encounter Summary ---
Author Organization [facility] Address [address] [facility] [address] [place] [address] Care Team Providers Care Agricultural Consultant Name Role Phone Unavailable Primary Care Provider Unavailabl e Reason for Visit * Reason Onset Date Comments New Patient 07/23/2023 Encounter Details Date Type Department Care Team (Late st Contact Info) Description 07/23/2023 Telephone [facility] [address] [place], [place] [phone] Noah Luu MD [address] [place], [place] [phone] New Patient Social History Tobacco Use Types Packs/Day Years Used Date Smoking Tobacco: Never Assessed Sex and Gender Information Value Date Recorded Sex Assigned at Not on file Legal Sex Male 8:40 PM EDT Gender Identity Not on file Sexual Orientation Not on file documented as of this encounter Miscellaneous Notes * Telephone Encounter - Magdiel Wilkes - 07/23/2023 2:46 PM EDT Tc to pt , to offer MACHINE WIPER Appt, pt states is not interested at the time for Wind Turbine Installer with Facility or has found other Facility. Advised if change of mind to please give facility a call at [phone] documented in this encounter Plan of Treatment Not on file documented as of this encounter Visit Diagnoses Not on filedocumented in this encounter
--- OUTSIDE RECORDS SUMMARY | 2025-03-16 16:31 | XMS_ITS | Clinical Summary ---
Author Organization [facility] Facility Address [address] [place] [address], [place] [address] Care Team Providers Care Turn Down Worker Name Role Phone Mary Pineda APRN Primary Care Provider [phone] Allergies No known active allergies Medications traMADol (ULTRAM) 50 MG tablet tramadol 50 mg tablet Active lisinopril 10 MG tablet at bed time 10/23/2022 Active atorvastatin (LIPITOR) 10 MG tablet Take 10 mg by mouth 11/08/2021 Active atenolol (TENORMIN) 25 MG tablet at bed time 10/23/2022 Active ascorbic acid (VITAMIN C) 500 MG tablet Take 500 mg by mouth in the morning. Active apixaban (ELIQUIS) 5 MG tablet Take 1 tablet by mouth in the morning and 1 tablet in the evening. 07/11/2021 Active acetaminophen (TYLENOL) 500 MG tablet Take 1,000 mg by mouth 06/24/2017 Active Active Problems Problem Noted Date Diagnosed Date Microscopic hematuria 01/04/2023 Primary insomnia 12/18/2022 Chronic low back pain 12/18/2022 Pain in joint involving ankle and foot 3 Overview (01/04/2023): Last Assessment & Plan: Could be central pain associated with history of stroke though there is no acute stroke signs today. He does have arthritis so could be acute on chronic osteoarthritis pain and tension within the extends over tendons of the foot. Trial of prednisone 20 mg daily for 10 days. Consider later patch given the superficial tenderness of the pain. We will send for x-ray of the left foot and in the meantime obtain labs including a CBC sed rate CRP rheumatoid factor. Follow-up with the patient labs or x-ray pathology Cholesterol level - finding 11/26/2022 Body mass index 30+ - obesity 11/26/2022 Impaired fasting glycemia 11/26/2022 Overview (11/26/2022): diabetic education doneadvised pre diabetic;increased risk diabetes Deep venous thrombosis 11/26/2022 Phlebitis 11/26/2022 History of cerebrovascular accident 09/18/2022 Overview (11/26/2022): Right basilar ganglia infarct lacunar Routine general medical exam ination at a [facility] facility 09/18/2022 Overview (11/26/2022): Last Assessment & Plan: The patient appears to be overall doing well. Would like to see him twice a year to assess his kidney function and see how his blood pressure is doing. I have offered him physical therapy referral for his balance but he has declined. I went over the findings that he presented to me today and educated him on the conditions that he is has presently. I offered him referral back to the urologist if you want we totally understand that he is picking and choosing what findings to pursue and as long as he makes an informed decision and were okay with that. I will see the patient back in 6 months for follow-up hypertension, his blood pressure is well controlled. He is prediabetic so we will recheck a hemoglobin A1c in 6 months. His labs from May were reviewed with him and found to be in good shape on the current medications. Benign prostatic hyperplasia 05/29/2022 Chronic deep venous thrombosis of thigh 05/29/20 Overview (11/26/2022): Last Assessment & Plan: The patient is on Eliquis for this and shall remain so. We will review the records for the rationale to continue this beyond the usual 3 to 6 months. We should periodically reassess the patient's kidney function especially where he is on lisinopril and atenolol. Dyslipidemia 05/29/2022 Overview (11/26/2022): Last Assessment & Plan: Dyslipidemia, patient on atorvastatin 20 mg obtain AST ALT lipid profile. We will establish a baseline lab with therapeutic Lipitor. We will see if an adjustment is necessary. We can follow-up with the patient in August. Pruritus 05/29/2022 Overview (11/26/2022): Last Assessment & Plan: We can try practical measures first for the pruritus as had described above. We could consider some externa though I would like to see the records first to see what the physician recruiter had written. Spinal stenosis of lumbar re gion with neurogenic claudication 05/29/2022 Overview (11/26/2022): Last Assessment & Plan: We encouraged the patient to consider the gabapentin that was prescribed for the chronic lower back pain. We admonished he should stay away from nonsteroidals given the fact that he is on Eliquis. Tylenol would be adequate, opioid management only if pain is intractable. Degeneration of lumbar intervertebral disc 07/12 Lumbar spondylosis with myelopathy 07/12/2021 H/O: artificial joint 04/17/2021 Overview (11/26/2022): 2018 in [place] Aortic valve regurgitation 05/23/2018 Overview (11/26/2022): 2017 Echo, Mild, MVR- Mild to Moderate, TVR- Mild Cataract 05/05/2018 Overview (11/26/2022): bilateral Atrial fibrillation 05/05/2018 Gout 05/05/2018 Hyperlipidemia 05/05/2018 Prolapsed lumbar intervertebral disc 03/07/2018 Overview (11/26/2022): October 2017: Lumbar MRI with L5/S1 s/p injection therapy (in [place]) Hypertensive disorder 11/27/2017 Aneurysm of aorta 08/06/2016 Overview (11/26/2022): 4.2 cm 06/11, 03/13 Stableminimal progression;monitoring CTmild see report ascending,arch,prox distal Allergic rhinitis 08/06/2016 Gallstone 08/06/2016 Chronic deep venous thrombosis 08/06/2016 Overview (11/26/2022): 01/2018 On anticoagulation; indefinite anticoagulation recommended Renal stone 08/06/2016 Overview (11/26/2022): Small right stone Osteoarthritis of joint of left shoulder region 08/06/2016 Overview (11/26/2022): bilateral rt shoulder Prediabetes 05/15/2016 Overview (11/26/2022): Last Assessment & Plan: Last A1c was below 6.5%, that was in January, now repeat the A1c and perhaps also in August and going forward just twice yearly as he remains control without the need for antidiabetics. Counseled on diabetic diet. Gastroesophageal reflux disease 10/19/2011 Overview (11/26/2022): handout Immunizations Immunization Administration Dates Next Due Influenza Split High Dose Pr eservative Free IM 07/09/2017 Influenza Whole 08/02/2010,07/07/2009 Influenza, Unspecified 08/07/2022,2014,09/25/2013,07/28,09/02/2011 Moderna SARS-COV-2 01/29/2022 Pfizer SARS-COV-2 07/31/2022,,12/21/2020,11/25 Pneumococcal Conjugate 13-Valent 08/07/2017,10/0 06/2015 Pneumococcal Polysaccharide 11/28/2003 Td 02/25/2005 Td, Unspecified 02/25/2005 Zoster 03/14/2011 Family History Relation Status Comments Father Mother Social History Tobacco Use Types Packs/Day Years Used Date Smoking Tobacco: Never Smokeless Tobacco: Never Tobacco Cessation:Counseling Given: Not Answered Alcohol Use Standard Drinks/Week Comments Never 0 (1 standard drink = 0.6 oz pur e alcohol) Sex and Gender Information Value Date Recorded Sex Assigned at Not on file Legal Sex Male 8:01 AM EST Gender Identity Not on file Sexual Orientation Not on file Last Filed Vital Signs Vital Sign Reading Time Taken Comments Blood Pressure 139/60 01/04/2023 11:00 AM EST Pulse 76 01/04/2023 11:00 AM EST Temperature - - Respiratory Rate - - Oxygen Saturation 98% 01/04/2023 11:00 AM EST Inhaled Oxygen Concentration - - Weight 76.7 kg (169 lb) 01/04/2023 11:00 AM EST Height - - Body Mass Index - - Plan of Treatment Health Maintenance Due Date Last Done Comments Influenza Vaccine (Season Ended) 2025 08/07/2022, 07/09/2017, 07/07/2015, Additional history exists Pneumococcal Vaccine: 50+ Years Completed 08/07/2017, 08/05/2015, 11/28/2003 Hepatitis B Vaccine Aged Out No longe r eligible based on patient's age to complete this topic Insurance [facility] Medicare [facility] Medicare Care Teams Turn Down Worker Relationship Specialty Start Date End Date Mary Pineda APRN [address] [place] [address] PCP - General Internal Medicine 10/30/22
--- OUTSIDE RECORDS SUMMARY | 2025-03-16 16:31 | XMS_ITS | Data Portability ---
Author Organization [place] [facility] Address [address] [place] [address] Care Team Providers Care Beam Dyer Recessed Vat Name Role Phone CHAIM MANN Primary Care Provider CHAIM MANN Referring Provider [phone] Assessment Encounter Date Assessment Date Assessment LastModified by Organization Details LastModified Time 11/27/2017 11/27/2017 Patient presents with chronic low back pain. Based on history, physical exam, and prior treatments/diagno stic studies, I recommend bilateral L5 transforaminal ESIs and will also start him on [place] 5/325 as he reports significant pain and limitation in his daily activities. Discussed treatment plan with patient. [email or web address] Not available 11/27/2017 13:54:15 Plan of Treatment Reminders Order Date Submit Date Provider Last Modified By Organization Details Last Modified Time Details Appointments None recorded . Lab drug confirma tion, urine SPENCER [facility] [place], [address], 8 15:33:18 Referral None recorded . Procedures None recorded . Surgeries None recorded . Imaging None recorded . Medication Orders Deerfield 5 mg-325 mg tablet INTERFACE [id number] [address] [facility], [place], [address], 8 13:52:56 Patient TargetsNo targets recorded. Patient Instructions Encounter Date Encounter Id Patient Instructions Last Modified By Organization Details Last Modified Time 11/27/2017 [id number] learning about lumbar epidural steroid injections Not available 11/27/2017 13:52:05 low back pain: exercises Not available 11/27/2017 13:52:05 Reason for Referral None Reported. Results Created Date Observation Date Name Description Value Unit Range Abnormal Flag Note LastModifiedBy Organization Detail LastModifiedTime 11/27/19 18 12/04/2017 toxas sure selec t 11 report summary FINAL ===== ===== ===== ===== ===== ===== ===== ===== ===== ===== ===== ===== ===== === TOXAS SURE SELEC T 11 ===== ===== ===== ===== ===== ===== ===== ===== ===== ===== ===== ===== ===== === Test Resul t Flag Units Drug Prese nt and Decla red for Presc ripti on Verif icati on Trama dol PRESE NT EXPEC JAZ O-Zay methy ltram adol PRESE NT EXPEC JAZ Sourc e of trama dol is a presc ripti on medic ation . O-zay methy ltram adol is an expec jaz metab olite of trama dol. Drug Absen t but Decla red for Presc ripti on Verif icati on [place] codon e Not Detec jaz UNEXP ECTED ng/mg creat ===== ===== ===== ===== ===== ===== ===== ===== ===== ===== ===== ===== ===== === Test Resul t Flag Units Ref Range Creat inine 179 mg/dL >=20 ===== ===== ===== ===== ===== ===== ===== ===== ===== ===== ===== ===== ===== === Decla red Medic ation s: The kayli ing and inter preta tion on this repor t are based on the follo wing decla red medic ation s. Unexp ected resul ts may arise from inacc uraci es in the decla red medic ation s. Not e: The testi ng scope of this panel inclu zay these medic ation s: [place] codon e Trama dol ===== ===== ===== ===== ===== ===== ===== ===== ===== ===== ===== ===== ===== === For clini martita consu ltati on, pleas e call . ===== ===== ===== ===== ===== ===== ===== ===== ===== ===== ===== ===== ===== === Not Available [facility] [address], [place], [address], 12/04/2017 08:33:23 11/27/19 18 12/04/2017 toxas sure selec t 11 pdf . Not Available [facility] [address], [place], [address], 12/04/2017 08:33:23 11/18/19 18 11/15/2017 MRI, lumba r spine , w/o contr ast No observ ation record ed. [email or web address] [facility] [address], [place], [address], 11/19/2017 08:55:19 11/27/19 18 11/15/2017 MRI, lumba r spine , w/o contr ast No observ ation record ed. [email or web address] Not Available 2017 13:46:47 Result Notes None recorded. Problems Name Problem SNOMED Code Status Onset Date Resolution Date Notes Provider Name and Address Organization Details Recorded Time Hypertensive disorder 90999818 Active 2017 Martina Crockett [facility], [facility] 8 13:21:41 Problem Notes None recorded. Procedures Surgical History Date Name Laterality Status Provider Name and Address Organization Details Recorded Time 12/13/19 18 BILATERAL single level transforaminal mitchel completed Thierry Gilbert [facility], [facility] 12/13/2017 09:12:39 Hernia Repair completed Martina Crokcett [facility], [facility] 11/27/2017 13:22:50 Imaging Results Imaging Date Name Status LastModified by Organiz ation Details LastModified Time 11/15/2017 MRI, lumbar spine, w/o contrast completed [email or web address] [facility] [address], [place], [address], 11/19/2017 08:55:19 11/15/2017 [facility], w[email or web address] not available 11/27/2017 13:46:47 Procedure Notes None recorded. Medical Equipment None Reported. Allergies No known drug allergies Medications Name Sig Start Date Stop Date Status Note LastModified by Organization Details LastModified Time hydrocodone 5 mg-acetaminop hen 325 mg tablet Take 1 tablet twice a day by oral route as needed for 30 days. active Not Available Not Available No t Available atenolol 25 mg tablet Take 1 tablet every day by oral route. active Not Available Not Available No t Available tramadol 50 mg tablet active Not Available Not Available No t Available lisinopril 10 mg tablet Take 1 tablet every day by oral route. active Not Available Not Available No t Available prednisone 5 mg tablets in a dose pack active Not Available Not Available Not Available Eliquis active Not Available Not Avail able Not Available Vitals Date Recorded Body height Body mass index (BMI) Body weight Heart rate Systolic blood pressure Diastolic blood pressure Provider Name and Address Organization Details Last Updated DateTime 8 172.72 cm 27.7 kg/m2 08988.8 1 g 104 /min 154 mm[Hg] 73 mm[Hg] Martina Bon [facility], [facility] 8 13:20:35 Date Recorded Body height Body mass index (BMI) Body weight Heart rate Systolic blood pressure Diastolic blood pressure Provider Name and Address Organization Details Last Updated DateTime 8 172.72 cm 27.7 kg/m2 18692.8 1 g 67 /min 164 mm[Hg] 68 mm[Hg] Negin Butt [place] - [facility], [facility] 8 09:00:34 Social History Question Answer Notes LastModified by [facility] Details LastModified Time Tobacco Smoking Status Never Smoker Not Available [employer] 08/30/2020 03:16:54 Auto Related Injury? No Information not available 11/27/2017 What Is Your Level Of Caffeine Consumption? None [id number] Information not available 08/30/2020 Which Illicit Or Recreational Drugs Have You Used? DENIES [id number] Information not available 08/30/2020 Drugs Abused DENIES Information not available 11/27/2017 Are You Following A Fluid Restriction Diet? No [id number] Information no t available 08/30/2020 Live Alone Or With Others? With Others Information not available 11/27/2017 What Was The Date Of Your Most Recent Tobacco Screening? 11/27/2017 [id number] Information not available 08/30/2020 How Much Tobacco Do You Smoke? No [id number] Information not available 08/30/2020 Work Related Injury? No [email or web address] Information not available 11/27/2017 Sex: Unknown Functional Status Question Answer Note LastModified by [facility] Details LastModified Time What is your level of alcohol consumption? Occasional [id number] Information not available 08/30/2020 What is your occupation? retired [id number] Information not available 08/30/2020 What is your exercise level? Occasional [id number] Information not available 08/30/2020 Mental Status None recorded. Family History Relationship Description Onset Age of this Age Resolved Age Notes LastModified by Organization Details LastModified Time Unspecified Relation Heart disease Not available 2017 13:21:46 Medical History Condition Response Coronary Artery Disease N High Blood Pressure Y Kidney Stones N Hyperthyroidism N Emphysema/COPD N Carpal Tunnel Syndrome N night sweats N Depression N unexplained weight gain N Peripheral Neuropathy N Bursitis N insomnia N chills N Acid Reflux (GERD) N Cancer N Chronic Kidney Disease N Chronic Joint Pains N Stroke/TIA N Bronchitis/Pneumonia N Rheumatoid Arthritis N Dialysis N Fibromyalgia N Headaches N Schizophrenia N Osteoarthritis N Head Injury N Anxiety N Fatigue N Migraines N Thyroid Problems N Easy bruising N Gastrointestinal Bleeding N Urinary incontinence N Anemia N Multiple Sclerosis N Constipation N Diabetes N unexplained weight loss N Heart Attack N Asthma N Hypothyroidism Glaucoma N Difficulty Sleeping N Seizures N Peripheral Vascular Disease N Bipolar Disorder N Low sex drive N Osteoporosis N Past Encounters Encounter ID Performer Location Encounter Start Date Encounter Closed Date Diagnosis/Indication Diagnosis SNOMED-CT Code Diagnosis ICD10 Code Diagnosis Note [id number] Thierry Gilbert MD [place] [facility] [address] [facility] [facility] [place] [address] 11/27/2017 12:50:21 11/27/2017 13:56:45 Lumbar radiculopathy 023926771 M54.16 The patient has tried several modalities in a stepwise approach to control their pain including; NSAIDS, activity modificati on, home exercise program and formal physical therapy. In an effort to moderate the patients pain and reduce the need for opioid medication or surgery, and because more conservati ve measures have already failed, I believe they would benefit from a Lumbar Epidural Steroid injection. Today I have advised the patient of the risks of such a procedure including: bleeding, infection, nerve root injury, paralysis and inadverten t entry into the spinal fluid. I have explained the procedure and possible outcomes to the patient. I have invited and answered all questions. The patient would like to proceed and will be scheduled for a targeted injection today. Lumbar spondylosis 01470 0009 M47.896 candidate for MBB should he not receive relief from the L5 TFESI Long-term drug therapy 553060552 Z79.899 Today, patient was counseled in regards to narcotic therapy and the risks thereof. This includes tolerance, dependence and addiction as well as untoward effects on hormones. Counseled on the the risk of sedation with the use of narcotics and the need to be aware of such. Counseled not to drive and be aware of fall risk while taking these medication s. I've also advised the patient that operating the car while under the influence of opiate medication or other medication s that may impair judgment. Counseled in regards to the risk of opioids in combinatio n with other medication s or substances that may depress the central nervous system such as anti-anxie ty medication s, muscle relaxants, antidepres sants, other opioids, alcohol and marijuana. Counseled the patient that combinatio ns of these medication s can have serious adverse side effects including respirator y depression , coma and . Counseled patient to discuss any concerning side effects with me immediatel y. We discussed the high risk of constipati on and patient will discuss with me if we need to initiate a bowel regimen. All opportunit ies to review and discuss the opioid agreement were offered and patient elected to proceed with a prescripti on of opioids. An opioid agreement was signed and placed in the patients medical record. The opioid agreement will be reviewed and re-signed on regular intervals. [id number] Thierry Gilbert MD [facility] [address] [place] [address] 12/13/2017 08:51:28 12/13/2017 09:39:20 Lumbar radiculopathy [id number] M54.16 Health Concerns Section Related Observation LastModified by Organization Detai ls LastModified Time None Recorded Concern Status LastModified by Organization Details LastModified Time None Recorded Advance Directives Directive None Recorded Payers Encounter Date Sequence Insurance Name Policy Number Policy Castillo Covered Member ID Castillo Member ID Guarantor Name 11/27/2017 1 [facility] (MEDICARE REPLACEMENT/A DVANTAGE - HMO) [id number] Daniel Sargent [id number] Daniel Sargent 12/13/2017 1 [facility] (MEDICARE REPLACEMENT/A DVANTAGE - HMO) [id number] Daniel Sargent [id number] Daniel Sargent Notes Date Note Type Note Provider Name and Address Organization Details Recorded Time 11/27/2017 text/html Pain Management L-spineReported bypatient.Location :pain is not radiating; LBP Quality:tightness; aching;dull Severity:current pain level 8/10; worst pain 10/10;worsening Duration:constant Onset/Timing:gradu al onset; 5 months Context:cannot identify Alleviating Factors:heat; medication; PT Aggravating Factors:carrying; getting out of bed; going from sit to stand; walking (up and down stairs) Associated Symptoms:no weakness; no numbness; no bladder compromise; no bowel compromise Radiation:no radiation Work Related:no ADL (Activities of Daily Living):do not improve with medication Pain Relief with Current Medications:0% Driving Impairments with Medications:no Prior Imaging:MRI (lumbar spine) Prior EMG:none Previous Surgery:none Previous Injections:none Previous PT:helped temporarily Previous Banking Attorney:helped temporarily Mr. Sargent is a very pleasant 77 year old male with a history of worsening lumbar pain. He has attempted treatment with home care manager with limited benefit. He is interested in all options for controlling his pain at this time. Thierry hansen, [place] - [facility], [facility] 11/27/2017 22:05:14
--- OUTSIDE RECORDS SUMMARY | 2025-03-16 16:31 | XMS_ITS | Clinical Summary ---
Author Organization [employer] Address [address] [place] [address] Care Team Providers Care Extras Casting Director Name Role Phone Unavailable Primary Care Provider Unavailabl e Social History Tobacco Use Types Packs/Day Years Used Date Smoking Tobacco: Never Assessed Sex and Gender Information Value Date Recorded Sex Assigned at Not on file Legal Sex Male 8:40 PM EDT Gender Identity Not on file Sexual Orientation Not on file Plan of Treatment Health Maintenance Due Date Last Done Comments Depression Screening 1938 Lipid Panel 1938 Alcohol/Substance Use Screening 1950 Tobacco Screening 1952 DTaP/Tdap/Td Vaccines (1 - Tdap) 1957 Pneumococcal Vaccine: 50+ Ye ars (1 of 1 - PCV) 02/01/1988 Zoster Vaccines (1 of 2) 02/01/1988 RSV Patients and Pa tients Aged 60 years or older (1 - 1-dose 75+ series) 2013 COVID-19 Vaccine (2023-2 5 season) 2024 Influenza Vaccine (#1) 2024 HIB Vaccines Aged Out No longer eligi ble based on patient's age to complete this topic HPV Vaccines Aged Out No longer eligi ble based on patient's age to complete this topic Hepatitis A Vaccines Aged Out No long er eligible based on patient's age to complete this topic Hepatitis B Vaccines Aged Out No long er eligible based on patient's age to complete this topic IPV Vaccines Aged Out No longer eligi ble based on patient's age to complete this topic Meningococcal B Vaccine Aged Out No l onger eligible based on patient's age to complete this topic Meningococcal Vaccine Aged Out No kishore nadine eligible based on patient's age to complete this topic RSV under 20 months Aged Out No longe r eligible based on patient's age to complete this topic Rotavirus Vaccines Aged Out No longer eligible based on patient's age to complete this topic
--- OUTSIDE RECORDS SUMMARY | 2025-03-16 16:31 | XMS_ITS ---
Author Name [facility] Organization Unknown Encounters Encounter Type Encounter Reason Primary Diagnosis Location Date Ambulatory [facility] [place] 07/10/2023 Ambulatory [facility] [place] 07/10/2023 Ambulatory [facility] [place] 07/10/2023
--- OUTSIDE RECORDS SUMMARY | 2025-03-16 16:31 | XMS_ITS | Continuity of Care Document ---
Author Organization [facility] Address [address] [place] [address] Care Team Providers Care Environmental Field Office Manager Name Role Phone Americo Love MD Unavailable Unavailable Advance Directives Directive Yes / No Effective Date File Name No Information Encounters Encounter Description Practice Location Reason(s) For Visit Diagnoses Date Provider Providers Copied on Encounter [facility], [address], [place], [place], [id number], [facility] [place] No Information Kate Driscoll. [address] [place] [address], [address], [place], [place], [id number], [place]. tel:[phone] Family History Family Member Type Diagnosis Age At Onset No Information Payers Payer name Insurance type Covered green party ID Authoriza tion(s) No Information Social History Type Description Quantity Date Captured Comments Sex Male Smoking Status No Information Chief Complaint And Reason For Visit No Information Reason For Referral Reason For Referral No Information History Of Present Illness Encounter Date Complaint History Of Prese nt Illness No Information Functional Status Date Functional Assessmen t No Information Instructions Date Instruction Additional Infor mation No Information Assessments Type Assessment Date No Information Patient Care Teams Name Effective Dates (start - stop) Status Members No Information
[2025-03-16 17:40] LABS: Influenza A PCR NEGATIVE (Negative); Influenza B PCR NEGATIVE (Negative); Resp Syncy Virus RNA Qual PCR NEGATIVE (Negative); SARS COV2 PCR INHOUSE NEGATIVE (Negative)
[2025-03-16] MEDS: Apixaban 5 MG TABLET PO (21:20)
[2025-03-16 21:47] VITALS: BP 120/54; PULSE 85; RESP 20; TEMP 36.9; O2SAT 97
[2025-03-17] MEDS: diphenhydrAMINE HCL 25 MG CAPSULE 50 MG PO (01:19)
--- NOTE | 2025-03-17 01:30 | PC.NURSE ---
pt able to answer questions appropriately, pt repositioned for comfort, medicated per mar, emptied, urinal 500cc, call miguel at the bedside.
[2025-03-17 01:33] VITALS: BP 131/66; PULSE 82; RESP 20; TEMP 36.8; O2SAT 97
--- NOTE | 2025-03-17 05:02 | PC.NURSE ---
pt sleeping at this time.
[2025-03-17] MEDS: Acetaminophen 325 MG TABLET 650 MG PO (06:08)
[2025-03-17 06:21] VITALS: BP 128/52; PULSE 76; RESP 20; TEMP 38.1; O2SAT 96
[2025-03-17 06:30] LABS: Appearance Urine Clear; Color Urine Yellow; Glucose Urine UA Negative (Negative); Leukocyte Esterase Urine Negative (Negative); Nitrite Urine Negative (Negative); Specific Gravity - Urine 1.025 (1.005-1.025); Urine Blood Negative (Negative); Urine Ketones 15 mg/dL (Negative); Urine Protein Negative (Neg-Trace)
--- NOTE | 2025-03-17 06:30 | PC.NURSE ---
Complete bed change, pt changed into hospital attire, low grade temp of 100.5, urine dark and concentrated, notified Dr. Adams.
[2025-03-17 06:33] LABS: Bacteria Urine None Seen (None Seen); Hyaline Casts Urine 0-2 /LPF (0-2); RBC Urine 0-2 /HPF (0-2); Squamous Epithelial Cell Urine 0-2 /HPF (0-2); WBC Urine 0-5 /HPF (0-5)
--- NOTE | 2025-03-17 07:08 | PC.NURSE ---
hearing aide and cell phone at bedside.
[2025-03-17 07:55] VITALS: BP 128/52; PULSE 76; O2SAT 96
[2025-03-17 09:09] VITALS: BP 132/77
[2025-03-17] MEDS: lisinopriL 10 MG TABLET PO (09:09)
[2025-03-17] MEDS: Apixaban 5 MG TABLET PO (09:09)
[2025-03-17] MEDS: Atorvastatin Calcium 20 MG TABLET PO (09:09)
[2025-03-17] MEDS: Multivitamin TABLET 1 TAB PO (09:10)
--- NOTE | 2025-03-17 09:12 | PC.NURSE ---
Son in law at bedside. Patient seen by Karena Escalera, patient plans on going home, will make home modifications to help support ADL's. Patient denies pain at this time, +ROM, non tender. Call miguel in reach
--- NOTE | 2025-03-17 09:18 | MHC.CM.ED ---
Addendum entered by Karena Gan 03/17/25 10:29: [facility] is only agency able to accept patient. Patient accepts. Original Note: Patient remains in ER. Physical therapy eval completed. Short term rehab is recommended. Met with patient and son-in-law, Nam in regards to discharge planning. Patient feels he can safely return home. He isn't interested in STR because he doesn't like the food and feels he will do better at home. Patient and Nam agreeable to referral for [facility] being broadcasted. Also agreeable to referral to [facility] with daughter, Margy, being the point of contact. Nam and patient's son, Daniel will help transport patient home. Referral broadcasted in [facility] for [facility]. Task sent to [facility]. Patient, Chrystal Browning RN and Angelica KNAPP aware. Continue to monitor for d/c needs.
[2025-03-17 09:53] VITALS: BP 132/77; PULSE 76
[2025-03-17] MEDS: atenoloL 25 MG TABLET PO (09:53)
[2025-03-17 10:15] VITALS: BP 160/74; PULSE 80; RESP 18; TEMP 36.8; O2SAT 94
== END 2025-03-17 10:16 | disposition home or self-care (01) ==
PROVIDERS: Emergency Provider Emergency Medicine; PCP Internal Medicine
DX: S80.01XA Contusion of right knee, initial encounter (principal); R51.9 Headache, unspecified; M25.561 Pain in right knee; R26.2 Difficulty in walking, not elsewhere classified; X58.XXXA Exposure to other specified factors, initial encounter; Y93.9 Activity, unspecified; Y92.9 Unspecified place or not applicable; Y99.8 Other external cause status; Z79.899 Other long term (current) drug therapy; Z03.818 Encounter for observation for suspected exposure to other biological agents ruled out
CPT/HCPCS: 0241U; 36415; 70450; 73564; 80053; 81001; 85025; 97162; 99285

== ENCOUNTER → 2025-03-16 14:51 | Outpatient (BNV) | payer MEDICARE, SELFPAY | PROVIDERS: Emergency Provider Emergency Medicine; PCP Internal Medicine; Visit Provider Radiology Diagnostic Radiology | DX: I63.81 Other cerebral infarction due to occlusion or stenosis of small artery (principal); M17.11 Unilateral primary osteoarthritis, right knee | CPT/HCPCS: 70450; 73564 ==